=== PATIENT | female | born 1935 | race Caucasian/White ===

== ENCOUNTER 2017-04-28 16:07 | Inpatient (IN) | payer OTHER, MEDICARE ==
[~2017-04-28] VITALS: Ht 154.9 cm; Wt 68.0 kg
[~2017-04-28 16:07] MED LIST: ASPIRIN EC325 MG PO; ATENOLOL25 MG PO; BISAC-EVAC10 M1 PR; COUMADIN7.5 M1 PO; DILTIAZEM HYDR240 M1 PO; DOCUSATE SODIU100 M3 PO; FISH OIL 1,2001 EACH PO; FOLIC ACID0.4 MG PO; HYDROCODON-ACE1 EAC2 PO; HYDRODIURIL 112.5 M1 PO; LISINOPRIL20 MG PO; MIRALAX119 GM PO; POTASSIUM CHLO10 ME1 PO; SELENIUM200 MC1 PO; Tylenol PO; VICODIN5-300 PO; VITAMIN D1000 IU PO; VITAMIN D31000 UNI1 PO
--- NOTE | 2017-04-28 16:15 | ED UPPER/LOWER EXTREMITY COMPL ---
See Addendum History of Present Illness General Chief Complaint: Hip Injury Stated Complaint: BIBA L HIP PAIN Source: patient, old records Exam Limitations: no limitations Vital Signs & Intake/Output Vital Signs & Intake/Output Vital Signs Date Time Temp Pulse Resp B/P B/P Pulse O2 O2 Flow FiO2 Mean Ox Delivery Rate 04/29 1202 78 140/84 04/29 1051 Room Air 04/29 0620 98.3 80 18 138/80 91 Room Air 04/28 2345 98.0 77 18 118/82 92 Room Air 04/28 2154 98.3 87 18 138/58 94 Room Air 04/28 2000 98.1 84 18 111/66 95 Room Air 04/28 1836 67 19 180/100 99 Room Air 04/28 1630 97.2 66 22 172/100 98 Room Air ED Intake and Output 04/29 0000 04/28 1200 Intake Total 100 Output Total Balance 100 Intake, IV 100 Intake, Oral 0 Patient 150 lb Weight Weight Reported by Patient Measurement Method Allergies Coded Allergies: NO KNOWN ALLERGIES (05/15/11) Triage Note: PER PT STOOD UP QUICK AND TURNED FEET GOT TANGLED, FELL ONTO L BUTT, UPON EMS ARRIVAL L LEG SHORTENED NO LOC NO BLOOD THINNERS Triage Nurses Notes Reviewed? yes Onset: Just prior to arrival Duration: day(s): (1) Timing: remote history Severity: moderate Severity Numbers: 8 Pain/Injury Location: Left: Hip. Method of Injury: fall Modifying Factors: Improves With: immobilization. Worsens With: movement. Associated Symptoms: swelling HPI: Patient is a 81-year-old female with history of hypertension presenting to the emergency Department chief complaint of left hip pain, sinus areas prior to arrival after fall. Patient reports that she got up quickly and her left foot got caught on the ground and she twisted her left ankle and went down and landed on her left hip. Denies head striker LOC. No neck pain or back pain. She was unable to get up but reports that her friend was over an irregular call for help. Patient denies abdominal pain chest pain palpitations or shortness of breath. Denies any presyncopal symptoms prior to the fall. Patient reports that her she simply got caught on the floor. Denies being on blood thinners. Denies taking anything for pain prior to arrival. History of right hip fracture 2 years ago that was repaired, reports this feels similar. (Nathalie Mock) Reconcile Medications Atenolol 25 MG TABLET 1 TAB PO DAILY BP (Reported) Cholecalciferol (Vitamin D3) (Vitamin D3) 1,000 UNIT CAPSULE 3 CAP PO DAILY SUPPLEMENT (Reported) DILTIAZEM HCL (Diltiazem 24HR Cd) 240 MG CAP.ER.24H 1 CAP PO DAILY HEART ( Reported) Docusate Sodium 100 MG CAPSULE 100 MG PO BID PRN constipation Folic Acid (Unknown Strength) TAB (Unknown Dose) PO DAILY SUPPLEMENT ( Reported) Hydrochlorothiazide (Hydrodiuril 12.5 MG Tab) 12.5 MG CAPSULE 1 CAP PO DAILY BP (Reported) Lisinopril 20 MG TABLET 1 TAB PO DAILY BP (Reported) Potassium Chloride 10 MEQ TABLET.ER 1 TAB PO DAILY SUPPLEMENT (Reported) Selenomethionine (Selenium) 200 MCG TABLET 1 TAB PO DAILY SUPPLEMENT ( Reported) (Malick LANCASTER,Jeanie) Past History Travel History Traveled to [place] past 21 day No Medical History Any Pertinent Medical History? see below for history Neurological: incidental finding of a brain tumor EENT: NONE Cardiovascular: hypertension Respiratory: NONE Gastrointestinal: NONE Hepatic: NONE Renal: NONE Musculoskeletal: NONE Psychiatric: NONE Endocrine: NONE Blood Disorders: NONE Cancer(s): NONE History of MRSA: No History of VRE: No History of CDIFF: No Pneumonia Vaccine: 03/24/09 Surgical History Surgical History: N Psychosocial History Who do you live with Spouse What is your primary language [place] Family History Hx Contributory? No (Nathalie Mock) Review of Systems Review of Systems Constitutional: Reports: no symptoms. Comments Review of systems: See HPI, All other systems negative. Constitutional, no chills fever or weight loss HEENT: No visual changes no sore throat no congestion Cardiovascular: No chest pain ,palpitation , orthopnea Skin, no jaundice no rashes Respiratory: No dyspnea cough sputum or hemoptysis GI: No nausea no vomiting : No dysuria No hematuria Muscle skeletal: no back pain, no neck pain, Neurologic: No numbness no confusion NO HEADACHES Psych: No stress anxiety or depression,. Heme/endocrine: No bruising no bleeding no polyuria or polydipsia Immunology: No splenectomy or history of AIDS (Nathalie Mock) Physical Exam Physical Exam General Appearance: well developed/nourished, no apparent distress, alert, awake , comfortable Comments: Well-developed well-nourished person in no acute distress HEENT: Atraumatic. Extraocular motion intact, no nystagmus. Pupils equally round and reactive to light and accommodation. Nose is atraumatic. External auditory canal and Tympanic membranes clear. Pharynx normal. No swelling or edema. Neck: Normal infection, no C-spine tenderness. Full range of motion. Cardiovascular: Regular rate and rhythms no murmurs rubs or gallops, normal JVP Respiratory: No respiratory distress.breath sounds clear to auscultation bilaterally Abdomen: Soft, nontender nondistended, no appreciable organomegaly. Normal bowel sounds. No ascites, no rebound or guarding. Extremity: Left lower extremity is shortened, internally rotated, pain to palpation over the left proximal femur/left hip area. Unable to move left lower extremities secondary to pain. Able to move the left toes without difficulties or pain. Pedal pulses are 2+ bilaterally. For range of motion of upper extremities bilaterally without without difficulty or pain. Full range of motion of right lower extremity without difficulty or pain. Edema noted over the left proximal femur area. Tender to palpation over the left lateral ankle. No obvious edema. Pedal pulses are 2+ bilaterally. Neuro: Alert oriented x3, motor sensory normal, cranial nerves II through XII grossly intact. Cerebellar testing is unremarkable. Skin: No appreciable rash on exposed skin, skin is warm and dry. Psych: Mood and affect is normal, memory and judgment is normal. (Adrianna MICHAEL,Nathalie) Progress Differential Diagnosis: contusion, dislocation, fracture, sprain, tendon injury Plan of Care: Orders Procedure Date/time Status Nothing by Mouth 04/29 B Active Change service to 04/29 07 Active CBC WITHOUT DIFFERENTIAL 04/29 599 Complete BASIC ELECTROLYTES PLUS BUN&CR 04/29 599 Complete Heart Healthy Diet 04/28 D Complete Vital Signs 04/28 2317 Active Teach/Educate 04/28 2317 Active Pain Treatment and Response 04/28 2317 Active Nutritional Intake, Monitor 04/28 2317 Active Isolation 04/28 2317 Active Intake & Output 04/28 2317 Active Patient Care Conference 04/28 2317 Active Activity/Ambulation 04/28 2317 Active Pathway - chart 04/28 2155 Active House Staff 04/28 2155 Active Patient Data 04/28 2155 Active Code Status 04/28 2155 Active Patient Data 04/28 2031 Active Intake & Output 04/28 2022 Active ED Holding Orders 04/28 1935 Active Admit to inpatient 04/28 1935 Active Vital Signs 04/28 1935 Active Code Status 04/28 1935 Complete Add-on Test (ER Only) 04/28 1639 Active Jennings, Insertion/Removal/Asses 04/28 1630 Active CULTURE,URINE 04/28 1630 Active URINALYSIS 04/28 1630 Complete TROPONIN LEVEL 04/28 1614 Complete PARTIAL THROMBOPLASTIN TIME 04/28 1614 Complete PROTHROMBIN TIME 04/28 1614 Complete COMPREHENSIVE METABOLIC PANEL 04/28 161 Complete CBC WITHOUT DIFFERENTIAL 04/28 161 Complete EKG 04/28 1614 Active TYPE & SCREEN (NOT X-MATCH) 04/28 1614 Complete VTE Mechanical Prophylaxis 04/28 UNK Active Vital Signs 04/28 UNK Complete Current Medications Sig/Sita Start time Last Medication Dose Stop Time Status Admin Atenolol 25 MG DAILY 04/29 1000 AC 04/29 (Tenormin) 1202 Diltiazem HCl 240 MG DAILY 04/29 1000 AC 04/29 (Cardizem CD) 1202 Morphine Sulfate 2 MG Q4P PRN 04/29 0015 AC 04/29 (Morphine) 1201 Acetaminophen 650 MG Q6P PRN 04/28 2200 AC (Tylenol) Heparin Sodium 5,000 UNIT Q8 04/28 2200 AC 04/29 (Porcine) 0620 Hydrocodone Bitart/ 1 TAB Q6P PRN 04/28 2200 AC 04/28 Acetaminophen 2216 (Vicodin) Senna/Docusate Sodium 1 TAB AT BEDTIME 04/28 2199 AC 04/29 (Senokot S) 0000 Lisinopril 20 MG ONCE ONE 04/28 1929 CAN (Prinivil) 04/28 1930 Laboratory Tests 04/29/17 0800: Anion Gap 10, Estimated GFR > 60, BUN/Creatinine Ratio 33.3 H, CBC w Diff NO MAN DIFF REQ, RBC 4.38, MCV 85.5, MCH 28.4, MCHC 33.2, RDW 13.2, MPV 9.2, Gran % 78.0 H, Lymphocytes % 11.9 L, Monocytes % 8.9, Eosinophils % 1.0, Basophils % 0.2, Absolute Granulocytes 10.7 H, Absolute Lymphocytes 1.6, Absolute Monocytes 1.2 H, Absolute Eosinophils 0.1, Absolute Basophils 0 04/28/17 1645: PT 11.7, INR 1.12, APTT 33, CBC w Diff NO MAN DIFF REQ, RBC 5.04, MCV 85.9, MCH 28.6, MCHC 33.3, RDW 13.5, MPV 8.5, Gran % 76.8 H, Lymphocytes % 14.6 L, Monocytes % 7.1, Eosinophils % 1.2, Basophils % 0.3, Absolute Granulocytes 8.5 H, Absolute Lymphocytes 1.6, Absolute Monocytes 0.8 H, Absolute Eosinophils 0.1 , Absolute Basophils 0 04/28/17 1640: Urine Color YEL, Urine Clarity CLEAR, Urine pH 6.0, Ur Specific [place] 1.025, Urine Protein NEG, Urine Ketones NEG, Urine Nitrite NEG, Urine Bilirubin NEG, Urine Urobilinogen 0.2, Ur Leukocyte Esterase NEG, Ur Microscopic EXAM NOT REQUIRED, Urine Hemoglobin NEG, Urine Glucose NEG 04/28/17 1615: Anion Gap 15, Estimated GFR > 60, BUN/Creatinine Ratio 22.5, Glucose 111 H, Calcium 9.7, Total Bilirubin 0.2, AST 17, ALT 24, Alkaline Phosphatase 113, Troponin I < 0.01, Total Protein 6.7, Albumin 3.8, Globulin 2.9, Albumin/ Globulin Ratio 1.3 Microbiology 04/28 1640 URINE ROUT: Urine Culture - RES Merritt Keyes MD, reporting that the patient will likely go to surgery tomorrow if medically cleared. Nothing by mouth after midnight. Patient's pain has been better controlled with IV Tylenol and IV morphine. She reports that is long she doesn't move she is not in too much pain. Patient's leg was splinted for the left ankle fracture. Remote history of ankle fracture 40 years ago, same side. Patient reports that she did take all of her daily medications prior to coming in this afternoon. Patient given a second dose of her lisinopril secondary to elevated blood pressure. PE blood pressure is 111/68. This is prior to lisinopril. Diagnostic Imaging: Viewed by Me: Radiology Read. Discussed w/RAD: Radiology Read. Radiology Impression: PATIENT: SYDNEY DAWKINS PRESENT AGE: 81 PATIENT ACCOUNT NO: [id number] : 37 LOCATION: [facility] ORDERING PHYSICIAN: Nathalie MICHAEL SERVICE DATE: 04/28/17 EXAM TYPE: RAD - XRY-CHEST XRAY, SINGLE VIEW; XRY-HIP 2-3 VIEWS, LEFT EXAMINATION:\H\ \N\AP view of the chest and 2 views of the left hip CLINICAL INFORMATION: Left hip pain. COMPARISON: Pelvic radiographs 07/17/2015 FINDINGS: Left hip: There is a comminuted intertrochanteric fracture of the proximal left femur with varus angulation of the major distal fracture fragment. Lesser trochanter avulsion fracture fragment. The femoral acetabular joint is maintained. No additional fractures are identified. Stable calcification within the left hemipelvis, again most likely a fibroid. Chest: Symmetric lung inflation. Linear atelectasis at the left lung base. No focal consolidation, pleural effusion, or pneumothorax. There is an old healed fracture of the proximal right humerus. There are a few old healed left-sided rib fractures. No acute fractures are identified. IMPRESSION: - There is an acute comminuted intertrochanteric fracture of the proximal left femur. - No acute findings within the chest. Chronic deformity of the proximal right humerus. DICTATED BY: Bj Garcia MD DATE/TIME DICTATED: 04/28/171723 YARD LABOR SUPERVISOR:ALEXANDER DATE/TIME TRANSCRIBED:04/28/171723 CONFIDENTIAL, DO NOT COPY WITHOUT APPROPRIATE AUTHORIZATION. <Electronically signed in Other Vendor System> SIGNED BY: Bj Garcia MD 04/28/17 1731 (Adrianna MICHAEL,Nathalie) Departure Departure Time of Disposition: 1923 Disposition: STILL A PATIENT Condition: Stable Clinical Impression Primary Impression: Closed left hip fracture Qualifiers: Encounter type: initial encounter Qualified Code: S72.002A - Fracture of unspecified part of neck of left femur, initial encounter for closed fracture Secondary Impressions: Closed fracture of left distal fibula Qualifiers: Encounter type: initial encounter Fracture morphology: unspecified fracture morphology Qualified Code: S82.832A - Other fracture of upper and lower end of left fibula, initial encounter for closed fracture Hypertension Qualifiers: Hypertension type: essential hypertension Qualified Code: I10 - Essential (primary) hypertension Referrals: Jose Brewster DO (PCP/Family) Departure Forms: Customer Survey General Discharge Information Admission Note Spoke With: Sebastián Elias MD Documentation of Exam: Documentation of any treatments & extenuating circumstances including Concerns Regarding Discharge (functional status, medication knowledge or non-compliance, living conditions, etc.) that warrant an admission rather than observation: Patient requiring IV pain management for left hip fracture, surgical correction of left hip fracture, physical therapy evaluation, rehabilitation placement for physical therapy, discharge at this time is medically harmful. Patient usually ambulatory without device at baseline. eval and tx of left ankle. (Nathalie Mock) PA/STRETCH MACHINE OPERATOR Co-Sign Statement Statement: ED Attending supervision documentation- [X] I saw and evaluated the patient. I have also reviewed all the pertinent lab results and diagnostic results. I agree with the findings and the plan of care as documented in the PA's/STRETCH MACHINE OPERATOR's documentation. [X] I have reviewed the ED Record and agree with the PA's/STRETCH MACHINE OPERATOR's documentation. [] Additions or exceptions (if any) to the PAs/STRETCH MACHINE OPERATOR's note and plan are summarized below: [] (Malick LANCASTER,Jeanie) Procedures Splinting Location: left ankle Manual Alignment Performed: No Hand-Made Type: orthoglass Splint: posterior walking Splint Applied By: splint applied by me Pre-Proc Neuro Vasc Exam: normal Post-Proc Neuro Vasc Exam: normal Progress: tolerated well (Nathalie Mock) Critical Care Note Critical Care Note Critical Care Time: 30-74 min (Nathalie Mock)
[2017-04-28 17:00] LABS: ABSOLUTE BASOPHIL COUNT 0 /CUMM (0.0-0.2); ABSOLUTE EOSINOPHIL COUNT 0.1 /CUMM (0.0-0.7); ABSOLUTE GRANULOCYTE CT 8.5 /CUMM (1.4-6.5); ABSOLUTE LYMPH COUNT 1.6 /CUMM (1.2-3.4); ABSOLUTE MONOCYTE COUNT 0.8 /CUMM (0.10-0.60); BASOPHIL % 0.3 % (0.0-2.0); EOSINOPHIL % 1.2 % (0-5); GRANULOCYTE % 76.8 % (42.2-75.2); HEMATOCRIT 43.3 % (37-47); MEAN CORPUSCULAR HGB 28.6 PG (27.0-31.0); MEAN CORPUSCULAR HGB CONC 33.3 G/DL (33.0-37.0); MEAN CORPUSCULAR VOLUME 85.9 FL (81.0-99.0); MEAN PLATELET VOLUME 8.5 FL (7.4-10.4); PLATELET COUNT 356 /CUMM (130-400); RBC DISTRIBUTION WIDTH 13.5 % (11.5-14.5); RED BLOOD CELL CT 5.04 /CUMM (4.20-5.40)
[2017-04-28 17:10] LABS: PT 11.7 SEC (9.4-12.5); PTT 33 SEC (25-37)
--- NOTE | 2017-04-28 17:31 | RADIOLOGY REPORT ---
EXAMINATION:\H\ \N\AP view of the chest and 2 views of the left hip CLINICAL INFORMATION: Left hip pain. COMPARISON: Pelvic radiographs 07/17/2015 FINDINGS: Left hip: There is a comminuted intertrochanteric fracture of the proximal left femur with varus angulation of the major distal fracture fragment. Lesser trochanter avulsion fracture fragment. The femoral acetabular joint is maintained. No additional fractures are identified. Stable calcification within the left hemipelvis, again most likely a fibroid. Chest: Symmetric lung inflation. Linear atelectasis at the left lung base. No focal consolidation, pleural effusion, or pneumothorax. There is an old healed fracture of the proximal right humerus. There are a few old healed left-sided rib fractures. No acute fractures are identified. IMPRESSION: - There is an acute comminuted intertrochanteric fracture of the proximal left femur. - No acute findings within the chest. Chronic deformity of the proximal right humerus.
--- NOTE | 2017-04-28 18:20 | RADIOLOGY REPORT ---
EXAMINATION: AP view of the pelvis and 2 views of the left ankle CLINICAL INFORMATION: Fall. COMPARISON: Left hip radiographs performed earlier the same day. FINDINGS: Pelvis: Stable appearing comminuted intertrochanteric fracture of the proximal left femur with varus angulation of the major distal fracture fragment and a lesser trochanter avulsion fracture fragment. There are chronic appearing fractures of the superior and inferior pubic rami associated with callus formation. There is a screw and intramedullary demarco within the proximal right femur. Femoral acetabular joints are well aligned. Left ankle: There is a transverse fracture through the distal fibula with adjacent soft tissue swelling. Ankle mortise is intact. No additional fractures are identified. Hypertrophic spur at the Achilles insertion of the calcaneus. IMPRESSION: - Stable appearing acute comminuted intertrochanteric fracture of the proximal left femur. No additional acute pelvic fractures. - There is an acute transverse fracture through the distal left fibula with adjacent soft tissue swelling. No additional acute ankle fractures. - Chronic appearing fractures of the superior and inferior pubic rami bilaterally exhibiting callus formation
--- NOTE | 2017-04-28 20:18 | Cons- Orthopedic ---
Blanche Connelly 04/28/17 2016: General Information and HPI Consulting Request Date of Consult: 04/28/17 Requested By: ED Reason for Consult: left hip fx, left fibula fx History of Present Illness: 81yoF presents to ed sp fall at home. She denies cp/sob/palpitations/dizziness at time of fall, and thinks she "rolled" her ankle causing her to fall and land on her left hip. She denies head injury or loc. She has pain in her left hip and lower leg with movement, though comfortable at this time at rest. Denies parasthesias, denies any other current symptoms other than pain with movement. She does have a history of right hip fx sp orif [address] Gates, whom she requests again if available. Allergies/Medications Allergies: Coded Allergies: NO KNOWN ALLERGIES (05/15/11) Home Med List: Atenolol 25 MG TABLET 1 TAB PO DAILY BP (Reported) Cholecalciferol (Vitamin D3) (Vitamin D3) 1,000 UNIT CAPSULE 3 CAP PO DAILY SUPPLEMENT (Reported) DILTIAZEM HCL (Diltiazem 24HR Cd) 240 MG CAP.ER.24H 1 CAP PO DAILY HEART ( Reported) Docusate Sodium 100 MG CAPSULE 100 MG PO BID PRN constipation Folic Acid (Unknown Strength) TAB (Unknown Dose) PO DAILY SUPPLEMENT ( Reported) Hydrochlorothiazide (Hydrodiuril 12.5 MG Tab) 12.5 MG CAPSULE 1 CAP PO DAILY BP (Reported) Lisinopril 20 MG TABLET 1 TAB PO DAILY BP (Reported) Potassium Chloride 10 MEQ TABLET.ER 1 TAB PO DAILY SUPPLEMENT (Reported) Selenomethionine (Selenium) 200 MCG TABLET 1 TAB PO DAILY SUPPLEMENT ( Reported) Past History Medical History Neurological: TIA (4 years ago) Cardiovascular: hypertension Musculoskeletal: falls, sp right hip orif, hx right shoulder dislocation, sp r wrist orif Surgical History Pertinent Surgical History: tubal ligation, right hip orif, right wrist orif Psychosocial History Where Do You Live? Home Who Do You Live With? self Services at Home: None Functional Ability Ambulation: cane Exam & Diagnostic Data Vital Signs and I&O Vital Signs Date Time Temp Pulse Resp B/P B/P Pulse O2 O2 Flow FiO2 Mean Ox Delivery Rate 04/28 1836 67 19 180/100 99 Room Air 04/28 1630 97.2 66 22 172/100 98 Room Air Physical Exam: gen- nad card-s1s2 rrr pulm- ctab abd- obese soft nt ext- lle shortened and ext rotated, palp dp, gross sensate and motor intact in toes, toes warm, distal leg in spint, hip ttp laterally. rle calf soft nt, palp dp, no lesions Last 24 Hours of Labs: Laboratory Tests 04/28 04/28 1645 1640 Coagulation PT (9.4 - 12.5 SEC) 11.7 INR (0.90 - 1.19) 1.12 APTT (25 - 37 SEC) 33 Hematology CBC w Diff NO MAN DIFF REQ WBC (4.8 - 10.8 /CUMM) 11.0 H RBC (4.20 - 5.40 /CUMM) 5.04 Hgb (12.0 - 16.0 G/DL) 14.4 Hct (37 - 47 %) 43.3 MCV (81.0 - 99.0 FL) 85.9 MCH (27.0 - 31.0 PG) 28.6 MCHC (33.0 - 37.0 G/DL) 33.3 RDW (11.5 - 14.5 %) 13.5 Plt Count (130 - 400 /CUMM) 356 MPV (7.4 - 10.4 FL) 8.5 Gran % (42.2 - 75.2 %) 76.8 H Lymphocytes % (20.5 - 51.1 %) 14.6 L Monocytes % (1.7 - 9.3 %) 7.1 Eosinophils % (0 - 5 %) 1.2 Basophils % (0.0 - 2.0 %) 0.3 Absolute Granulocytes (1.4 - 6.5 /CUMM) 8.5 H Absolute Lymphocytes (1.2 - 3.4 /CUMM) 1.6 Absolute Monocytes (0.10 - 0.60 /CUMM) 0.8 H Absolute Eosinophils (0.0 - 0.7 /CUMM) 0.1 Absolute Basophils (0.0 - 0.2 /CUMM) 0 Urines Urine Color (YEL,AMB,STR) YEL Urine Clarity (CLEAR) CLEAR Urine pH (5.0 - 8.0) 6.0 Ur Specific [place] (1.001 - 1.035) 1.025 Urine Protein (NEG,<30 MG/DL) NEG Urine Ketones (NEG) NEG Urine Nitrite (NEG) NEG Urine Bilirubin (NEG) NEG Urine Urobilinogen (0.1 - 1.0 EU/dl) 0.2 Ur Leukocyte Esterase (NEG) NEG Ur Microscopic EXAM NOT REQUIRED Urine Hemoglobin (NEG) NEG Urine Glucose (N MG/DL) NEG 04/28 161 Chemistry Sodium (137 - 145 mmol/L) 144 Potassium (3.5 - 5.1 mmol/L) 3.7 Chloride (98 - 107 mmol/L) 102 Carbon Dioxide (22 - 30 mmol/L) 28 Anion Gap (5 - 16) 15 BUN (7 - 17 mg/dL) 18 H Creatinine (0.5 - 1.0 mg/dL) 0.8 Estimated GFR (>60 ml/min) > 60 BUN/Creatinine Ratio (7 - 25 %) 22.5 Glucose (65 - 99 mg/dL) 111 H Calcium (8.4 - 10.2 mg/dL) 9.7 Total Bilirubin (0.2 - 1.3 mg/dL) 0.2 AST (14 - 36 U/L) 17 ALT (9 - 52 U/L) 24 Alkaline Phosphatase (<127 U/L) 113 Troponin I (< 0.11 ng/ml) < 0.01 Total Protein (6.3 - 8.2 g/dL) 6.7 Albumin (3.5 - 5.0 g/dL) 3.8 Globulin (1.9 - 4.2 gm/dL) 2.9 Albumin/Globulin Ratio (1.1 - 2.2 %) 1.3 Imaging Results: SERVICE DATE: 04/28/17 EXAM TYPE: RAD - XRY-CHEST XRAY, SINGLE VIEW; XRY-HIP 2-3 VIEWS, LEFT EXAMINATION:\\H\\ \\N\\AP view of the chest and 2 views of the left hip CLINICAL INFORMATION: Left hip pain. COMPARISON: Pelvic radiographs 07/17/2015 FINDINGS: Left hip: There is a comminuted intertrochanteric fracture of the proximal left femur with varus angulation of the major distal fracture fragment. Lesser trochanter avulsion fracture fragment. The femoral acetabular joint is maintained. No additional fractures are identified. Stable calcification within the left hemipelvis, again most likely a fibroid. Chest: Symmetric lung inflation. Linear atelectasis at the left lung base. No focal consolidation, pleural effusion, or pneumothorax. There is an old healed fracture of the proximal right humerus. There are a few old healed left-sided rib fractures. No acute fractures are identified. IMPRESSION: - There is an acute comminuted intertrochanteric fracture of the proximal left femur. - No acute findings within the chest. Chronic deformity of the proximal right humerus. SERVICE DATE: 04/28/17 EXAM TYPE: RAD - XRY-AP PELVIS; XRY-TWO VIEW LEFT ANKLE EXAMINATION: AP view of the pelvis and 2 views of the left ankle CLINICAL INFORMATION: Fall. COMPARISON: Left hip radiographs performed earlier the same day. FINDINGS: Pelvis: Stable appearing comminuted intertrochanteric fracture of the proximal left femur with varus angulation of the major distal fracture fragment and a lesser trochanter avulsion fracture fragment. There are chronic appearing fractures of the superior and inferior pubic rami associated with callus formation. There is a screw and intramedullary demarco within the proximal right femur. Femoral acetabular joints are well aligned. Left ankle: There is a transverse fracture through the distal fibula with adjacent soft tissue swelling. Ankle mortise is intact. No additional fractures are identified. Hypertrophic spur at the Achilles insertion of the calcaneus. IMPRESSION: - Stable appearing acute comminuted intertrochanteric fracture of the proximal left femur. No additional acute pelvic fractures. - There is an acute transverse fracture through the distal left fibula with adjacent soft tissue swelling. No additional acute ankle fractures. - Chronic appearing fractures of the superior and inferior pubic rami bilaterally exhibiting callus formation Assessment/Plan Assessment/Plan A- 81yof with left comminuted intertrochanteric fracture and transverse fracture of distal left fibula, with chronic pubic rami fractures, PMHx HTN and tia. P- -will require operative intervention once medically optimized. -npopmn -prn pain meds -will dw Dr. Keyes Consult Acknowledgment - Thank you for your consult request. Paulo Gates MD 04/29/17 2380: Assessment/Plan Consult Acknowledgment - Thank you for your consult request. Attending Review Statement Attending Statement Attending MD Statement: examined this patient, discuss w/resident/PA/CLIENT PARTNER, agreed w/resident/PA/CLIENT PARTNER
--- NOTE | 2017-04-28 20:52 | History & Physical ---
See Addendum Richard LANCASTER,[facility] 04/28/172050: General Information and HPI MD Statement: I have seen and personally examined JUANCHOSYDNEY and documented this H&P. The patient is a 81 year old F who presented with a patient stated chief complaint of [twisted left ankle and fall]. Source of Information: patient Exam Limitations: no limitations History of Present Illness: 81-year-old female with a past medical history of hypertension and incidental brain tumor, right hip fracture 2 years ago, and left ankle fracture 4 years ago presenting for left hip pain status post fall. The patient states that she got up too quickly from her chair and twisted her left ankle and then fell onto her left hip. The patient states that she had left hip and left ankle pain. She did not hit her head. She did not lose any consciousness. The patient currently does not have any pain at rest. She lives at home and is independent. She does not use any walker at baseline however she will use a cane if she walks outside for more support. The patient denies any headaches, dizziness, palpitations, nausea or vomiting, abdominal pain, changes in vision, seizures, incontinence, or tongue biting. Allergies/Medications Allergies: Coded Allergies: NO KNOWN ALLERGIES (05/15/11) Home Med list Atenolol 25 MG TABLET 1 TAB PO DAILY BP (Reported) Cholecalciferol (Vitamin D3) (Vitamin D3) 1,000 UNIT CAPSULE 3 CAP PO DAILY SUPPLEMENT (Reported) DILTIAZEM HCL (Diltiazem 24HR Cd) 240 MG CAP.ER.24H 1 CAP PO DAILY HEART ( Reported) Docusate Sodium 100 MG CAPSULE 100 MG PO BID PRN constipation Folic Acid (Unknown Strength) TAB (Unknown Dose) PO DAILY SUPPLEMENT ( Reported) Hydrochlorothiazide (Hydrodiuril 12.5 MG Tab) 12.5 MG CAPSULE 1 CAP PO DAILY BP (Reported) Lisinopril 20 MG TABLET 1 TAB PO DAILY BP (Reported) Potassium Chloride 10 MEQ TABLET.ER 1 TAB PO DAILY SUPPLEMENT (Reported) Selenomethionine (Selenium) 200 MCG TABLET 1 TAB PO DAILY SUPPLEMENT ( Reported) Past History Travel History Traveled to [place] past 21 day No Medical History Cardiovascular: hypertension Musculoskeletal: sp right hip orif History of MRSA: No History of VRE: No History of CDIFF: No Surgical History Surgical History: right hip orif Past Family/Social History Functional Ability Ambulation: cane Review of Systems Review of Systems Constitutional: Reports: no symptoms. Cardiovascular: Reports: no symptoms. Respiratory: Reports: no symptoms. GI: Reports: no symptoms. Genitourinary: Reports: no symptoms. Musculoskeletal: Reports: see HPI. Exam & Diagnostic Data Last 24 Hrs of Vital Signs/I&O Vital Signs Date Time Temp Pulse Resp B/P B/P Pulse O2 O2 Flow FiO2 Mean Ox Delivery Rate 04/28 2345 98.0 77 18 118/82 92 Room Air 04/28 2154 98.3 87 18 138/58 94 Room Air 04/28 2000 98.1 84 18 111/66 95 Room Air 04/28 1836 67 19 180/100 99 Room Air 04/28 1630 97.2 66 22 172/100 98 Room Air Intake & Output 04/29 0800 04/29 0000 04/28 1600 Intake Total 100 Output Total Balance 100 Intake, IV 100 Intake, Oral 0 Patient 150 lb Weight Weight Reported by Patient Measurement Method Physical Exam General Appearance Alert, Oriented X3 Cardiovascular Regular Rate, Normal S1, Normal S2 Lungs Clear to Auscultation, Normal Air Movement Abdomen Normal Bowel Sounds, Soft, No Tenderness Extremities left hip tender to palpation, left ankle/fibula wrapped Vascular 2+ radial and pedal pulses Last 24 Hrs of Labs/Brijesh: Laboratory Tests 04/28/17 1645: PT 11.7, INR 1.12, APTT 33, CBC w Diff NO MAN DIFF REQ, RBC 5.04, MCV 85.9, MCH 28.6, MCHC 33.3, RDW 13.5, MPV 8.5, Gran % 76.8 H, Lymphocytes % 14.6 L, Monocytes % 7.1, Eosinophils % 1.2, Basophils % 0.3, Absolute Granulocytes 8.5 H, Absolute Lymphocytes 1.6, Absolute Monocytes 0.8 H, Absolute Eosinophils 0.1 , Absolute Basophils 0 04/28/17 1640: Urine Color YEL, Urine Clarity CLEAR, Urine pH 6.0, Ur Specific [place] 1.025, Urine Protein NEG, Urine Ketones NEG, Urine Nitrite NEG, Urine Bilirubin NEG, Urine Urobilinogen 0.2, Ur Leukocyte Esterase NEG, Ur Microscopic EXAM NOT REQUIRED, Urine Hemoglobin NEG, Urine Glucose NEG 04/28/17 1615: Anion Gap 15, Estimated GFR > 60, BUN/Creatinine Ratio 22.5, Glucose 111 H, Calcium 9.7, Total Bilirubin 0.2, AST 17, ALT 24, Alkaline Phosphatase 113, Troponin I < 0.01, Total Protein 6.7, Albumin 3.8, Globulin 2.9, Albumin/ Globulin Ratio 1.3 Microbiology 04/28 1640 URINE ROUT: Urine Culture - RECD Assessment/Plan Assessment: 81-year-old female with a past medical history of hypertension and incidental brain tumor, right hip fracture 2 years ago, and left ankle fracture 4 years ago presenting for left hip pain status post fall and found to have a left fibular fracture. 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 Fibula fracture Core Measures/Misc (12/08) Acute Coronary Syndrome ACS Diagnosis: No Congestive Heart Failure Congestive Heart Failure Diagnosis No Cerebrovascular Accident CVA/TIA Diagnosis: No VTE (View Protocol) VTE Risk Factors Acute Medical Illness No Mechanical VTE Prophylaxis d/t Other No VTE Pharm Prophylaxis d/t NA PharmProphylax ordered Sepsis (View protocol) Sepsis Present: No [facility]11: Resident Review Statement Resident Statement: examined this patient, discussed with management internship, agreed with management internship Other Findings: Ms. Brandon is 9T9 [age] female with past medical history significant for hypertension, right hip fracture. Patient presented with chief complaint of left hip pain status post fall on left side. She reported diet which was trying to get up quickly from chair she twisted left ankle and fell on her left hip, felt pain immediately. Denied any weakness or numbness. Patient had multiple fractures before all after major trauma. Was started recently on IV to donate once a week. Patient denied any headaches, blurry vision, dizziness, syncopal attack, confusion, seizures. She lives by herself and competent ADL and IADL without problems. Problem list -Hypertension -Fall -Leukocytosis mostly reactional Plan -Admit to general medical floor -Vitals every shift -Orth consultation -Cardiac clearance given that history of stress test 2 years ago and hypertension on multiple blood pressure medication hydrochlorothiazide, beta kun, calcium channel kun, ESA inhibitor -Adequate pain control -Follow CBC and BMP in a.m. -please obtain records from ambulance driver paramedic Code full DVT prophylaxis heparin subcutaneous Nothing by mouth for surgical intervention in a.m. Sebastián Elias 04/29/17 1012: Attending MD Review Statement Attending Statement Attending MD Statement: examined this patient, discuss w/resident/PA/OIL DISPENSER, agreed w/resident/PA/OIL DISPENSER, reviewed EMR data (avail), reviewed images, amended to note Attending Assessment/Plan: CC: Fall PMH: Hypertension, multiple fractures, right hip replacement Patient came to ER for what appears to be mechanical fall. Patient was trying to get up from chair twisted her left ankle and fell down on her buttock, no head strike, no loss of consciousness, no prodromal symptoms before fall. No seizure- like activity. At baseline patient is very active, does not get shortness of breath or chest pain on exertion, no history of coronary artery disease or cardiac catheterization, stress test within the last 2 years which was normal. Vitals: Temperature 97.2, pulse 66, RR 22, blood pressure 172/100, saturating 98 % on room air On exam: A O 3, cooperative, no acute distress, neck supple, JVD normal, no lymphadenopathy, mucosa moist, no focal neurological deficit, no dependent edema , no obvious skin rashes or inflammation CVS: S1-S2, RRR. RS: Clear to auscultate bilaterally. Abdomen: Soft, NT, ND, bowel sounds present. Left lower extremity shorter, bony tenderness, no open wounds, left ankle braced Labs: WBC 11.0, hemoglobin 4.4, hematocrit 43.3, platelets 356, neutrophils 76%, sodium 144, potassium 3.7, chloride 102, bicarbonate 28, BUN 18, creatinine 0.8, glucose 111, calcium 9.7, LFT unremarkable, troponin 0.01 1.12, UA unremarkable X-ray pelvis, x-ray ankle, x-ray hip and x-ray chest reviewed - Stable appearing acute comminuted intertrochanteric fracture of the proximal left femur. No additional acute pelvic fractures. - There is an acute transverse fracture through the distal left fibula with adjacent soft tissue swelling. No additional acute ankle fractures. - Chronic appearing fractures of the superior and inferior pubic rami bilaterally exhibiting callus formation Assessment and plan 81-year-old female came to ER after mechanical fall. No prodromal symptoms, no loss of consciousness, no head strike. She is found to have left intertrochanteric femur fracture and distal left fibula acute transverse fracture. Patient will require surgery. At baseline patient has no chest pain or chest tightness or dyspnea on exertion, never had coronary artery disease and stents of RCRI is low, good exercise tolerance. She used to do alize chi until 6 months back. 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 + Left intertrochanteric femur fracture + Left fibula fracture + Preop evaluation - Nothing by mouth - Saline lock IV - Continue her oral antihypertensives - Adequate pain control - Follow surgical recommendations - May require 2-D echo for persistent hypertension on multiple medications, cardiac clearance - Obtain records from patient's ambulance driver paramedic - DVT prophylaxis after surgery
[2017-04-28 23:45] VITALS: BP 118/82
[2017-04-29 06:20] VITALS: BP 138/80
--- NOTE | 2017-04-29 07:39 | PN- Housestaff ---
Harish LANCASTER,Alison 04/29/17 0739: Subjective Follow-up For: hypertension fibula fracture fall Subjective: patient is complaining of pain in her left hip from her fall. she has no other complaints. patient is NPO for surgery as of the morning. Review of Systems Constitutional: Reports: no symptoms. Cardiovascular: Reports: no symptoms. Respiratory: Reports: no symptoms. Musculoskeletal: Reports: joint pain, muscle pain. Hematologic/Endocrine: Reports: bruising. Objective Last 24 Hrs of Vital Signs/I&O Vital Signs Date Time Temp Pulse Resp B/P B/P Pulse O2 O2 Flow FiO2 Mean Ox Delivery Rate 04/29 1600 97.9 64 20 120/54 04/29 1429 99.3 68 20 125/80 91 04/29 1202 78 140/84 04/29 1051 Room Air 04/29 0620 98.3 80 18 138/80 91 Room Air 04/28 2345 98.0 77 18 118/82 92 Room Air Intake & Output 04/29 1600 04/29 0800 04/29 0000 Intake Total 100 Output Total 150 850 Balance -150 -850 100 Intake, IV 100 Intake, Oral 0 Number 0 Bowel Movements Output, Urine 150 850 Patient 150 lb Weight Weight Reported by Patient Measurement Method Physical Exam General Appearance: Alert, Oriented X3, Cooperative, No Acute Distress Skin: No Rashes, No Breakdown, No Significant Lesion Cardiovascular: Regular Rate, Normal S1, Normal S2, No Murmurs Lungs: Clear to Auscultation, Normal Air Movement Abdomen: Normal Bowel Sounds, Soft, No Tenderness Neurological: Normal Speech, Sensation Intact, Reflexes 2+ Extremities: No Clubbing, No Cyanosis, No Edema, Normal Pulses Current Medications: Current Medications Sig/Sita Start time Last Medication Dose Route Stop Time Status Admin Acetaminophen 650 MG Q6P PRN 04/29 1745 AC PO Acetaminophen 1,000 MG .STK-MED ONE 04/29 1352 DC IV 04/29 1353 Acetaminophen 1,000 MG .STK-MED ONE 04/29 1055 DC IV 04/29 1056 Acetaminophen 650 MG Q6P PRN 04/28 2200 DC PO Apixaban 2.5 MG BID 05/01 1000 AC PO Atenolol 25 MG DAILY 04/30 1000 AC PO Atenolol 25 MG DAILY 04/29 1000 DC 04/29 PO 1202 Cefazolin Sodium 2 GM Q8H 04/29 2300 AC N/A 1 UNIT IV 04/30 0729 Dextrose/Sodium 1,000 ML Q20H 04/30 0930 CAN Chloride IV Dextrose/Sodium 1,000 ML Q20H 04/29 1330 DC Chloride IV 04/30 0929 Diltiazem HCl 240 MG DAILY 04/30 1000 AC PO Diltiazem HCl 240 MG DAILY 04/29 1000 DC 02/ PO 1202 Fentanyl Citrate 250 MCG .STK-MED ONE 04/29 1352 DC IM 04/29 1353 Fentanyl Citrate 100 MCG .STK-MED ONE 04/29 1055 DC IM 04/29 1056 Haloperidol 5 MG .STK-MED ONE 04/29 1403 DC IM 04/29 1404 Heparin Sodium 5,000 UNIT Q8 04/29 2200 AC (Porcine) SC Heparin Sodium 0 .STK-MED ONE 04/28 2246 DC (Porcine) .ROUTE Heparin Sodium 5,000 UNIT Q8 04/28 2200 DC 04/29 (Porcine) SC 0620 Hydrocodone Bitart/ 1 TAB Q6P PRN 04/29 1745 AC Acetaminophen PO Hydrocodone Bitart/ 0 .STK-MED ONE 04/28 2219 DC Acetaminophen PO Hydrocodone Bitart/ 1 TAB Q6P PRN 04/28 2200 DC 04/28 Acetaminophen PO 2216 Hydromorphone HCl 2 MG .STK-MED ONE 04/29 1352 DC IM 04/29 1353 Ibuprofen 600 MG Q6P PRN 04/28 2200 DC PO Ketamine HCl 50 MG .STK-MED ONE 04/29 1100 DC IM 04/29 1101 Methocarbamol 500 MG TIDPRN PRN 04/29 2145 AC PO Midazolam HCl 2 MG .STK-MED ONE 04/29 1352 DC IM 04/29 1353 Midazolam HCl 2 MG .STK-MED ONE 04/29 1100 DC IM 04/29 1101 Midazolam HCl 2 MG .STK-MED ONE 04/29 1055 DC IM 04/29 1056 Morphine Sulfate 2 MG Q4P PRN 04/29 1745 AC 04/29 IV 1814 Morphine Sulfate 2 MG Q4P PRN 04/29 0015 DC 04/29 IV 1201 Morphine Sulfate 2 MG ONCE ONE 04/28 2300 DC 04/28 IV 04/28 2301 2256 Morphine Sulfate 0 .STK-MED ONE 04/28 2255 DC .ROUTE Omeprazole 20 MG DAILY AC 05/01 699 DC PO Omeprazole 20 MG DAILY AC 05/01 699 AC PO Ondansetron HCl 4 MG .STK-MED ONE 04/29 1403 DC IM 04/29 1404 Senna/Docusate Sodium 1 TAB AT BEDTIME 04/29 2200 AC PO Senna/Docusate Sodium 1 TAB AT BEDTIME 04/28 2200 DC 04/29 PO 0000 Last 24 Hrs of Lab/Brijesh Results Last 24 Hrs of Labs/Mics: Laboratory Tests 04/29/17 0800: Anion Gap 10, Estimated GFR > 60, BUN/Creatinine Ratio 33.3 H, CBC w Diff NO MAN DIFF REQ, RBC 4.38, MCV 85.5, MCH 28.4, MCHC 33.2, RDW 13.2, MPV 9.2, Gran % 78.0 H, Lymphocytes % 11.9 L, Monocytes % 8.9, Eosinophils % 1.0, Basophils % 0.2, Absolute Granulocytes 10.7 H, Absolute Lymphocytes 1.6, Absolute Monocytes 1.2 H, Absolute Eosinophils 0.1, Absolute Basophils 0 Assessment/Plan Assessment: 81-year-old female with a past medical history of hypertension and incidental brain tumor, right hip fracture 2 years ago, and left ankle fracture 4 years ago presenting for left hip pain status post fall and found to have a left fibular fracture. Plan: #Acute left fibular fracture -Patient to go for surgery today. She is NPO and on D51/2NS 50cc per hour in preparation. -Cardiac consult was called and they have given clearance for this lower risk procedure. -Echo for further periop workup was done before cardio consult was in. It showed EF of >65% with stage I diastolic dysfunction. We will do post surgery EKG. Also dc fluid and start diet post surgery. -prn pain meds (patient prefers Vicodin) -we will follow up with anticoagulation as ortho recommends. -Patient's DEXA is -3.6 but she is not on alendronate. It is recommended she start it on discharge and we will prescribe. - #Hypertension BP Max 180/100 Current BP: 118/82 #BPH #Full code #DVT prophylaxis Problem List: 1. Closed fracture of left distal fibula Pain Ratin Pain Location: left hip Pain Goal: Pain 4 or less Pain Plan: pathway Tomorrow's Labs & Rationales: cbc Joy Wisdom 04/29/17 1250: Attending MD Review Statement Attending Statement Attending MD Statement: examined this patient, discuss w/resident/PA/OPERATOR TECHNICIAN, agreed w/resident/PA/OPERATOR TECHNICIAN, discussed with family, reviewed EMR data (avail), discussed with nursing, discussed with case mgmt, reviewed images, amended to note Attending Assessment/Plan: Assessment and plan 81-year-old female came to ER after mechanical fall. No prodromal symptoms, no loss of consciousness, no head strike. She is found to have left intertrochanteric femur fracture and distal left fibula acute transverse fracture. patient has no chest pain or chest tightness or dyspnea on exertion, never had coronary artery disease and stents of RCRI is low, good exercise tolerance. 1 Left intertrochanteric femur fracture 2 Left fibula fracture 3 Preop evaluation - There is no medical contraindication for surgery. Low RCRI index. Patient is low risk for operative procedure. - Continue her oral antihypertensives - Adequate pain control - Follow orthopedics recommendations - Cardiology appreciated - DVT prophylaxis as per orthopedics.
[2017-04-29 08:51] LABS: ABSOLUTE BASOPHIL COUNT 0 /CUMM (0.0-0.2); ABSOLUTE EOSINOPHIL COUNT 0.1 /CUMM (0.0-0.7); ABSOLUTE LYMPH COUNT 1.6 /CUMM (1.2-3.4); MEAN CORPUSCULAR HGB 28.4 PG (27.0-31.0)
[2017-04-29 09:06] LABS: ABSOLUTE GRANULOCYTE CT 10.7 /CUMM (1.4-6.5); ABSOLUTE MONOCYTE COUNT 1.2 /CUMM (0.10-0.60); BASOPHIL % 0.2 % (0.0-2.0); MEAN CORPUSCULAR HGB CONC 33.2 G/DL (33.0-37.0); MEAN CORPUSCULAR VOLUME 85.5 FL (81.0-99.0); MEAN PLATELET VOLUME 9.2 FL (7.4-10.4); PLATELET COUNT 323 /CUMM (130-400); RBC DISTRIBUTION WIDTH 13.2 % (11.5-14.5); RED BLOOD CELL CT 4.38 /CUMM (4.20-5.40); WHITE BLOOD CELL COUNT 13.7 /CUMM (4.8-10.8)
[2017-04-29 09:12] LABS: HEMATOCRIT 37.5 % (37-47)
--- NOTE | 2017-04-29 10:13 | Admission Certification ---
Admission Certification Certification Statement - As attending physician, I certify that at the time of - admission, based on clinical presentation, severity of - symptoms, need for further diagnostic testing and - therapeutic interventions, and risk of adverse outcomes - without in-hospital treatment, in my clinical assessment, - this patient requires an acute hospital stay for a minimum - of two nights or longer. I have also considered psychsocial - factors such as support system, advanced age, financial - issues, cognitive issues, and failed out-patient treatments, - past re-admission history, safety of patient, and lack of - compliance as applicable. Specific rationale supporting this admission is: Left femur fracture
--- NOTE | 2017-04-29 10:37 | Cons- Cardiology ---
General Information and HPI Consulting Request Date of Consult: 04/29/17 Requested By: Joy Wisdom MD Reason for Consult: Cardiac clearance for hip fracture repair. Source of Information: patient, old records Exam Limitations: no limitations History of Present Illness: The patient is a 81-year-old female with a long history of hypertension. She is not diabetic. She doesn't have any history of heart disease including myocardial infarction, revascularization, etc. She denies any chest pain or shortness of breath on exertion. She has no orthopnea, PND, ankle edema, dizziness, syncope. The patient yesterday "twisted her ankle" and fell on her left side, fracturing her hip and her fibula. She is preoperative for hip fracture repair. She denies dizziness, presyncope or guido syncope preceding this event. The patient states her blood pressure is under good control at home. She is on multiple medications for this. Allergies/Medications Allergies: Coded Allergies: NO KNOWN ALLERGIES (05/15/11) Home Med List: Apixaban (Eliquis) 2.5 MG TABLET 1 TAB PO BID post surgical anticoagulation Atenolol 25 MG TABLET 1 TAB PO DAILY BP (Reported) Cholecalciferol (Vitamin D3) (Vitamin D3) 1,000 UNIT CAPSULE 3 CAP PO DAILY SUPPLEMENT (Reported) DILTIAZEM HCL (Diltiazem 24HR Cd) 240 MG CAP.ER.24H 1 CAP PO DAILY HEART ( Reported) Docusate Sodium 100 MG CAPSULE 100 MG PO BID PRN constipation Folic Acid (Unknown Strength) TAB (Unknown Dose) PO DAILY SUPPLEMENT ( Reported) Hydrochlorothiazide (Hydrodiuril 12.5 MG Tab) 12.5 MG CAPSULE 1 CAP PO DAILY BP (Reported) Hydrocodone/Acetaminophen (Hydrocodon-Acetaminophen 5-325) 5 MG-325 MG TABLET 1 TAB PO Q6P PRN PAIN SCALE 4-6 (MODERATE) Lisinopril 20 MG TABLET 1 TAB PO DAILY BP (Reported) Potassium Chloride 10 MEQ TABLET.ER 1 TAB PO DAILY SUPPLEMENT (Reported) Selenomethionine (Selenium) 200 MCG TABLET 1 TAB PO DAILY SUPPLEMENT ( Reported) Tramadol HCl 50 MG TABLET 1 TAB PO Q6P PRN pain Current Medications: Current Medications Sig/Sita Start time Last Medication Dose Route Stop Time Status Admin Acetaminophen 650 MG Q6P PRN 04/28 2199 AC PO Acetaminophen 0 .STK-MED ONE 02/05 1947 DC IV Acetaminophen 1,000 MG ONCE ONE 04/28 1615 DC 04/28 N/A 1 UNIT IV 04/28 1629 1953 Atenolol 25 MG DAILY 04/29 1000 AC 04/29 PO 1202 Diltiazem HCl 240 MG DAILY 04/29 1000 AC 04/29 PO 1202 Heparin Sodium 0 .STK-MED ONE 04/28 2246 DC (Porcine) .ROUTE Heparin Sodium 5,000 UNIT Q8 04/28 2200 AC 04/29 (Porcine) SC 0620 Hydrocodone Bitart/ 0 .STK-MED ONE 04/28 2219 DC Acetaminophen PO Hydrocodone Bitart/ 1 TAB Q6P PRN 04/28 2200 AC 04/28 Acetaminophen PO 2216 Ibuprofen 600 MG Q6P PRN 04/28 220 DC PO Lisinopril 20 MG ONCE ONE 04/28 1930 CAN PO 04/28 193 Morphine Sulfate 2 MG Q4P PRN 04/29 0015 AC 04/29 IV 1201 Morphine Sulfate 2 MG ONCE ONE 04/28 2300 DC / IV 04/28 2301 2256 Morphine Sulfate 0 .STK-MED ONE 04/28 2255 DC .ROUTE Morphine Sulfate 0 .STK-MED ONE 04/28 1649 DC .ROUTE Morphine Sulfate 2 MG ONCE ONE 04/28 1645 DC 04/28 IV 04/28 1646 1653 Senna/Docusate Sodium 1 TAB AT BEDTIME 04/28 2199 AC 04/29 PO 0000 Review of Systems Review of Systems: She has no other complaints in the review of systems at this time. Past History Travel History Traveled to [place] past 21 day No Medical History Blood Transfusion Hx: No Neurological: TIA IN 2013 (4 years ago) EENT: TONSILLECTOMY Cardiovascular: hypertension Respiratory: NONE Gastrointestinal: NONE Hepatic: NONE Renal: KIDNEY INFECTION AT AGE OF 23 YRS. 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 Home Who Do You Live With? self Services at Home: None Smoking Status: Former Smoker Functional Ability Ambulation: cane Exam & Diagnostic Data Vital Signs and I&O Vital Signs Date Time Temp Pulse Resp B/P B/P Pulse O2 O2 Flow FiO2 Mean Ox Delivery Rate 04/29 0620 98.3 80 18 138/80 91 Room Air 04/28 2345 98.0 77 18 118/82 92 Room Air 04/28 2154 98.3 87 18 138/58 94 Room Air 04/28 2000 98.1 84 18 111/66 95 Room Air 04/28 1836 67 19 180/100 99 Room Air 04/28 1630 97.2 66 22 172/100 98 Room Air Intake & Output 04/29 1600 04/29 0800 04/29 0000 04/28 1600 04/28 0800 04/28 0000 Intake Total 100 Output Total 850 Balance -850 100 Intake, IV 100 Intake, Oral 0 Number 0 Bowel Movements Output, Urine 850 Patient 150 lb Weight Weight Reported by Patient Measurement Method Physical Exam: Elderly female in no acute distress. HEENT exam normal Neck veins not distended Carotids normal. Chest clear Heart regular rhythm, no murmurs, gallops or rubs Extremities left leg externally rotated and shortened, no edema, pulses present Labs/Brijesh Results: Laboratory Tests 04/29 04/28 0800 1645 Chemistry Sodium (137 - 145 mmol/L) 140 Potassium (3.5 - 5.1 mmol/L) 3.6 Chloride (98 - 107 mmol/L) 99 Carbon Dioxide (22 - 30 mmol/L) 30 Anion Gap (5 - 16) 10 BUN (7 - 17 mg/dL) 20 H Creatinine (0.5 - 1.0 mg/dL) 0.6 Estimated GFR (>60 ml/min) > 60 BUN/Creatinine Ratio (7 - 25 %) 33.3 H Coagulation PT (9.4 - 12.5 SEC) 11.7 INR (0.90 - 1.19) 1.12 APTT (25 - 37 SEC) 33 Hematology CBC w Diff NO MAN DIFF REQ NO MAN DIFF REQ WBC (4.8 - 10.8 /CUMM) 13.7 H 11.0 H RBC (4.20 - 5.40 /CUMM) 4.38 5.04 Hgb (12.0 - 16.0 G/DL) 12.4 14.4 Hct (37 - 47 %) 37.5 43.3 MCV (81.0 - 99.0 FL) 85.5 85.9 MCH (27.0 - 31.0 PG) 28.4 28.6 MCHC (33.0 - 37.0 G/DL) 33.2 33.3 RDW (11.5 - 14.5 %) 13.2 13.5 Plt Count (130 - 400 /CUMM) 323 356 MPV (7.4 - 10.4 FL) 9.2 8.5 Gran % (42.2 - 75.2 %) 78.0 H 76.8 H Lymphocytes % (20.5 - 51.1 %) 11.9 L 14.6 L Monocytes % (1.7 - 9.3 %) 8.9 7.1 Eosinophils % (0 - 5 %) 1.0 1.2 Basophils % (0.0 - 2.0 %) 0.2 0.3 Absolute Granulocytes (1.4 - 6.5 /CUMM) 10.7 H 8.5 H Absolute Lymphocytes (1.2 - 3.4 /CUMM) 1.6 1.6 Absolute Monocytes (0.10 - 0.60 /CUMM) 1.2 H 0.8 H Absolute Eosinophils (0.0 - 0.7 /CUMM) 0.1 0.1 Absolute Basophils (0.0 - 0.2 /CUMM) 0 0 02/05 02/05 1640 1615 Chemistry Sodium (137 - 145 mmol/L) 144 Potassium (3.5 - 5.1 mmol/L) 3.7 Chloride (98 - 107 mmol/L) 102 Carbon Dioxide (22 - 30 mmol/L) 28 Anion Gap (5 - 16) 15 BUN (7 - 17 mg/dL) 18 H Creatinine (0.5 - 1.0 mg/dL) 0.8 Estimated GFR (>60 ml/min) > 60 BUN/Creatinine Ratio (7 - 25 %) 22.5 Glucose (65 - 99 mg/dL) 111 H Calcium (8.4 - 10.2 mg/dL) 9.7 Total Bilirubin (0.2 - 1.3 mg/dL) 0.2 AST (14 - 36 U/L) 17 ALT (9 - 52 U/L) 24 Alkaline Phosphatase (<127 U/L) 113 Troponin I (< 0.11 ng/ml) < 0.01 Total Protein (6.3 - 8.2 g/dL) 6.7 Albumin (3.5 - 5.0 g/dL) 3.8 Globulin (1.9 - 4.2 gm/dL) 2.9 Albumin/Globulin Ratio (1.1 - 2.2 %) 1.3 Urines Urine Color (YEL,AMB,STR) YEL Urine Clarity (CLEAR) CLEAR Urine pH (5.0 - 8.0) 6.0 Ur Specific [place] (1.001 - 1.035) 1.025 Urine Protein (NEG,<30 MG/DL) NEG Urine Ketones (NEG) NEG Urine Nitrite (NEG) NEG Urine Bilirubin (NEG) NEG Urine Urobilinogen (0.1 - 1.0 EU/dl) 0.2 Ur Leukocyte Esterase (NEG) NEG Ur Microscopic EXAM NOT REQUIRED Urine Hemoglobin (NEG) NEG Urine Glucose (N MG/DL) NEG Diagnostic Data EKG Results The EKG shows sinus rhythm at a rate of 67. There are no QRS or ST-T wave abnormalities seen. CXR Results PATIENT: SYDNEY DAWKINS PRESENT AGE: 81 PATIENT ACCOUNT NO: [id number] : 37 LOCATION: [facility] ORDERING PHYSICIAN: Nathalie MICHAEL SERVICE DATE: 04/28/17 EXAM TYPE: RAD - XRY-CHEST XRAY, SINGLE VIEW; XRY-HIP 2-3 VIEWS, LEFT EXAMINATION:\\H\\ \\N\\AP view of the chest and 2 views of the left hip CLINICAL INFORMATION: Left hip pain. COMPARISON: Pelvic radiographs 07/17/2015 FINDINGS: Left hip: There is a comminuted intertrochanteric fracture of the proximal left femur with varus angulation of the major distal fracture fragment. Lesser trochanter avulsion fracture fragment. The femoral acetabular joint is maintained. No additional fractures are identified. Stable calcification within the left hemipelvis, again most likely a fibroid. Chest: Symmetric lung inflation. Linear atelectasis at the left lung base. No focal consolidation, pleural effusion, or pneumothorax. There is an old healed fracture of the proximal right humerus. There are a few old healed left-sided rib fractures. No acute fractures are identified. IMPRESSION: - There is an acute comminuted intertrochanteric fracture of the proximal left femur. - No acute findings within the chest. Chronic deformity of the proximal right humerus. DICTATED BY: Bj Garcia MD DATE/TIME DICTATED:04/28/171723 ROPE TOW OPERATOR:ALEXANDER DATE/TIME TRANSCRIBED:04/28/171723 CONFIDENTIAL, DO NOT COPY WITHOUT APPROPRIATE AUTHORIZATION. <Electronically signed in Other Vendor System> SIGNED BY: Bj Garcia MD 04/28/17 1731 Other Results CONCLUSIONS Mild concentric left ventricular hypertrophy. Normal left ventricular ejection fraction visually estimated at >65 Abnormal relaxation filling pattern of the left ventricle for age (stage 1 diastolic dysfunction). The left atrium is normal in size. Structurally normal mitral valve. Trace to mild mitral regurgitation. Focal thickening of the aortic valve cusps. No aortic stenosis. Right ventricular systolic pressure estimated to be within the normal range at 25-30 mmHg. Dami Faust M.D. (Electronically Signed) Final Date: 29 April 2017 12:58 Assessment/Plan Assessment/Plan Ms. Dawkins is a 81-year-old female who fell and fractured her left hip. She has underlying hypertension which is under control with multiple medications. She does not have any underlying heart disease by history. She denies any cardiac symptoms. Her EKG is benign. Her echocardiogram did not show any major abnormalities. Her blood pressure was elevated on admission but is improved. Her labs are all satisfactory. She did have a right hip fracture repair 2 years ago which she tolerated well. There is no cardiac contraindication to surgery at this time. I don't think she needs any further preoperative testing at this point. I would obtain a postoperative electrocardiogram on her. Copies To: Bailey LANCASTER,Celina Murillo; Dav LANCASTER,Andrzej Harkins Consult Acknowledgment - Thank you for your consult request.
--- NOTE | 2017-04-29 12:59 | ECHOCARDIOGRAM REPORT ---
SYDNEY DAWKINS Age: 81 : 1935 Gender: F Exam Date: 04/29/2017 11:31 Exam Location: [place] Ht (in): 61 Wt (lb): 150 BSA: 1.73 BP: 138 / 80 Ordering Physician: Karol Lopez MD Referring Physician: Karol Lopez MD Technologist: Keegan Mchugh [facility] Room Number: 225-1 Indications: Hypertension Rhythm: Sinus Technical Quality: Fair FINDINGS Left Ventricle Normal size left ventricle. Mild concentric left ventricular hypertrophy. Normal left ventricular ejection fraction visually estimated at >65 %. No obvious regional wall motion abnormalities. Abnormal relaxation filling pattern of the left ventricle for age (stage 1 diastolic dysfunction). Right Ventricle The right ventricle is normal in size and function. Right Atrium The right atrium is normal in size. Left Atrium The left atrium is normal in size. The interatrial septum is intact. Mitral Valve Structurally normal mitral valve. Trace to mild mitral regurgitation. Aortic Valve Focal thickening of the aortic valve cusps. No aortic stenosis. No aortic regurgitation. Tricuspid Valve Structurally normal tricuspid valve. Mild tricuspid regurgitation. Right ventricular systolic pressure estimated to be within the normal range at 25-30 mmHg. Pulmonic Valve Structurally normal pulmonic valve. There is no pulmonic regurgitation. Pericardium Normal pericardium without effusion. No pleural effusion. Great Vessels Normal aortic root dimension. The aortic arch and great vessels are well seen and are normal. CONCLUSIONS Mild concentric left ventricular hypertrophy. Normal left ventricular ejection fraction visually estimated at >65 Abnormal relaxation filling pattern of the left ventricle for age (stage 1 diastolic dysfunction). The left atrium is normal in size. Structurally normal mitral valve. Trace to mild mitral regurgitation. Focal thickening of the aortic valve cusps. No aortic stenosis. Right ventricular systolic pressure estimated to be within the normal range at 25-30 mmHg. Dami Faust M.D. (Electronically Signed) Final Date: 29 April 2017 12:58 MEASUREMENTS (Male / Female) Normal Values 2D ECHO LV Diastolic Diameter PLAX 4.5 cm 4.2 - 5.9 / 3.9 - 5.3 cm LV Systolic Diameter PLAX 2.7 cm 2.1 - 4.0 cm LV Fractional Shortening PLAX 40.0 % 25 - 46 % LV Ejection Fraction 2D Teich 70.8 % IVS Diastolic Thickness 1.2 cm LVPW Diastolic Thickness 1.1 cm LV Relative Wall Thickness 0.5 RV Internal Dim ED PLAX 3.6 cm 1.9 - 3.8 cm LVOT Diameter 1.7 cm Aortic Root Diameter 3.0 cm LA Systolic Diameter LX 2.8 cm 3.0 - 4.0 / 2.7 - 3.8 cm DOPPLER AV Peak Velocity 163.0 cm/s AV Peak Gradient 10.6 mmHg AV Mean Velocity 105.0 cm/s AV Mean Gradient 5.0 mmHg AV Velocity Time Integral 31.2 cm LVOT Peak Velocity 121.0 cm/s LVOT Peak Gradient 5.9 mmHg LVOT Mean Velocity 66.2 cm/s LVOT Mean Gradient 2.0 mmHg LVOT Velocity Time Integral 21.6 cm LVOT Stroke Volume 49.0 cm AV Area Cont Eq vti 1.6 cm AV Area Cont Eq pk 1.7 cm MV Peak Velocity 103.0 cm/s MV Peak Gradient 4.2 mmHg MV Mean Velocity 50.5 cm/s MV Mean Gradient 1.0 mmHg Mitral E Point Velocity 58.7 cm/s Mitral A Point Velocity 99.2 cm/s Mitral E to A Ratio 0.6 MV PHT Velocity 63.8 cm/s MV Deceleration [place] 214.0 cm/s MV Pressure Half Time 89.4 ms MV Area PHT 2.5 cm MV Deceleration Time 437.0 ms TR Peak Velocity 239.0 cm/s TR Peak Gradient 22.8 mmHg Right Atrial Pressure 5.0 mmHg Pulmonary Artery Systolic Pressu 27.8 mmHg Right Ventricular Systolic Press 27.8 mmHg PV Peak Velocity 93.7 cm/s PV Peak Gradient 3.5 mmHg PV Mean Velocity 64.7 cm/s PV Mean Gradient 2.0 mmHg PV Velocity Time Integral 16.0 cm LV E' Lateral Velocity 7.5 cm/s Mitral E to LV E' Lateral Ratio 7.8 LV E' Septal Velocity 6.2 cm/s Mitral E to LV E' Septal Ratio 9.4
[2017-04-29 14:29] VITALS: BP 125/80
[2017-04-29 16:00] VITALS: BP 120/54
--- NOTE | 2017-04-29 17:04 | Operative Report ---
Operative/Inv Procedure Report Surgery Date: 04/29/17 Name of Procedure: 1) Repair left intertrochanteric hip fracture with left short cephalo-medullary nail. 2) Closed treatment left distal fibular fracture. Pre-Operative Diagnosis: 1) Left displaced intertrochanteric hip fracture. 2) Left nondisplaced transverse distal fibular fracture. Post-Operative Diagnosis: Same. Estimated Blood Loss: 50ml to 100ml Surgeon/Entertainment Agent: Rosalia Gates / No hr assistant Anesthesia: laryngeal mask airway Monitors: EKG/blood pressure/oxygen saturation. IV Fluids: 1200 mL crystalloid. Implants: 1) Deandre 11 mm diameter 130 left short gamma cephallomedullary nail. 2) 100 mm lag screw x 1. 3) Distal locking bolt x 1. 4) Set screw x 1. Urine Output: 200 mL. Drains: None. Specimens: None. Microbiology: None. Tourniquet: None. Complications: None known. Condition: Stable. Operative Indication: The patient is a 81-year-old female with a history of frequent falls who is well -known to me. I did previously perform a repair of a prior contralateral right hip intertrochanteric fracture with a short cephalo-medullary nail. The patient sustained another mechanical fall last night this time resulting in a displaced ipsilateral left hip intertrochanteric fracture. The patient was also found to have some left ankle pain. X-rays of the ankle show a transverse distal fibula fracture. The ankle was splinted in a fiberglass splint in the emergency room. The patient was admitted to the medical service. She was optimized and ultimately cleared for definitive operative treatment of her left hip fracture. Given that the patient has known me for a number of years she did request if I could take over her case and performed her left hip surgery. I was certainly amenable to this. We did once again discuss the risks and benefits and expected outcomes of nonoperative management of her left hip fracture which was discouraged. We did discuss the same alternatively with surgical intervention with repair of the left hip fracture using a short cephalo-medullary nail device. The patient was generally familiar with all of the above having already gone through this successfully previously several years ago. The patient did wish to move forward with surgery and surgical consent was obtained. Operative/Procedure Note Note: DATE OF SERVICE: 04/29/2017. PREOPERATIVE DIAGNOSIS: 1) Left displaced intertrochanteric hip fracture. 2) Left nondisplaced low transverse distal fibula ankle fracture. POSTOPERATIVE DIAGNOSIS: 1) Left displaced intertrochanteric hip fracture. 2) Left nondisplaced low transverse distal fibula ankle fracture. PROCEDURE TITLE: 1) Repair of left intertrochanteric hip fracture with cephalomedullary nail device. 2) Closed treatment left ankle distal fibula fracture. ESTIMATED BLOOD LOSS: [100] mL SURGEON: Paulo Gates M.D. WATCH AND CLOCK REPAIRER: [None.] ANESTHESIA: [General endotracheal.] FINDINGS: 1. Acceptable fracture reduction, alignment, and length achieved at left hip intertrochanteric fracture. 2. Acceptable hardware position and fixation achieved at left hip fracture. 3. Low transverse left ankle lateral malleolus fracture. MONITORS: EKG, BP, O2 saturation, BIS. IV FLUIDS: [Lactated Ringer's.] IMPLANTS PLACED: Daendre left short gamma nail components. 1. 11 mm diameter 130 degree cephalomedullary nail. 2. 100 mm lag screw x1. 3. Set screw 1. 4. Distal locking bolt x1. URINE OUTPUT: 200 mL. EBL: 100 mL. Ml. DRAINS: [None.] SPECIMEN: [None] TOURNIQUET: [None.] COMPLICATIONS: None known. OPERATIVE INDICATIONS: See above. PROCEDURE DESCRIPTION/FINDINGS: The patient was brought to the operating room. [General endotracheal anesthesia was induced on the hospital bed.] The patient was then transferred to the OR fracture table and positioned on the fracture table in standard position for left hip repair surgery. This included placing the perineum down against a well-padded perineal post. The affected ipsilateral foot and ankle were removed from their emergency room fiberglass posterior splint and dressings. The ankle was examined and felt to be in overall good condition despite the known low transverse distal fibula fracture. We did elect to proceed with traction through the left ankle despite the presence of the low transverse distal fibula fracture. We therefore wrapped the ankle with a thick layer of Webril cast padding. After that we place the foot and the ankle in to a foam ankle sleeve which was wrapped with Coban to add friction, and then the padded foot and ankle were secured in the traction boot attachment to the fracture table. The unaffected right lower extremity was then placed into a position of flexion, abduction, and external rotation through the right hip and supported in that position with a well-padded leg solomon placed underneath the right leg. Once this was all in place, the center board of the fracture table was removed. We brought the C-arm in between the legs and we did confirm that we could image the left hip in both AP and lateral fluoroscopic projections. We next, with fluoroscopic assistance, performed and confirmed that we did achieve an acceptable reduction of the intertrochanteric hip fracture. At this point the left lower extremity was prepped and draped in the usual sterile fashion. The skin was marked with a skin marker after localization with a metallic instrument placed over the anterior aspect of the hip in order to help localize the level of the proximal tip of the greater trochanter. Once this was marked, we made a longitudinal skin incision beginning roughly 3 cm proximal to this marking on the skin correlating with the tip of the greater trochanter and extending the skin incision in a longitudinal direction proximally for about 3-4 cm. Sharp dissection was continued down through the skin and subcutaneous tissues. Hemostasis was achieved using electrocautery. Retractors were placed deeper into the wound. A Alford elevator was used to scrape the deep subcutaneous tissue off of the underlying deep fascia. The fascial layer was then divided longitudinally in line with the skin incision and the gluteal musculature was divided bluntly with fingertip dissection, following by a small amount of use of the Alford elevator to expose the tip of the greater trochanter. A guidewire for the entry reamer was placed down onto the tip of the greater trochanter and repositioned several times with fluoroscopic assistance until we were satisfied with the initial positioning of the entry pin tip. [The pin tip was then able to be easily pushed into the bone through the trip of the greater trochanter down into the intertrochanteric region and into the proximal femoral shaft manually without need for any type of power.] Once we were satisfied with the positioning of the entry guide pin in both AP and lateral fluoroscopic projections, we placed a soft tissue protector over the guidewire down between the gluteal musculature and brought that down to the tip of the greater trochanter. We confirmed placement of the soft tissue protector against the tip of the greater trochanter fluoroscopically. We next reamed with the entry reamer over the guide pin under fluoroscopic control into the upper femoral shaft. We removed the entry reamer as well as the guide pin. We did confirm, even prior to prepping the skin, by placing a 11 mm diameter nail still in its' packaging over the anterior thigh and then take fluoroscopic images showing that the patient's femoral canal was much wider than 11 mm and that a 11 mm diameter nail would be able to be passed easily into the upper femur. We therefore opened a Deandre 11 mm x 130 degree left short cephalo-medullary nail and attached this to the supine ready mix truck driver. We next advanced the tip of the nail down into the opening made in the top of the greater trochanter and pushed the nail very easily with essentially minimal resistance into the proximal femur and repositioned the nail until we were satisfied with the depth of the penetration of the nail within the proximal femur. We next attached the double-drill sleeve for the guide pin for the lag screw to its's slot in the supine ready mix truck driver. This was advanced down through the supine ready mix truck driver and down to the level of the skin. We next made a longitudinal skin incision large enough to accommodate passage of the double drill sleeve. This was done with a scalpel through the skin, and a deep scalpel to go through the deeper soft tissues. We used a Alford elevator to expose the lateral femoral cortex and we held open the soft tissues with a Britney clamp and advanced the double drill sleeve down to the lateral femoral cortex. Once we were satisfied with the positioning of the double drill sleeve fluoroscopically, we drilled up through the sleeve under fluoroscopic control to advance the guide pin for the lag screw. This did require several attempts until we were satisfied with the positioning of the guide wire. We next took a depth gauge measurement to determine the amount of pin within the bone to determine the length of the lag screw. Based upon that measurement, we decided to go with an 100 mm lag screw. We next reamed over the guidewire under fluoroscopic control with the reamer up through the lateral femoral cortex into the intertrochanteric region, then in to the femoral neck, and up into the femoral head. We next advanced an 100 mm lag screw with a manual T-handle screwdriver over the guidewire, again under fluoroscopic control, until it was advanced far enough into a well-seated position with reasonably good purchase within the femoral head. At this point we locked the lag screw within the nail by tightening the set screw from above. We next turned our attention toward placement of a distal locking screw. This was also done with the small double drill sleeve which was advanced down to the skin. Another skin incision and soft tissue dissection was performed to bring the double drill sleeve down to the lateral femoral cortical bone of the shaft. Once this was confirmed to be in good position fluoroscopically, we drilled across under fluoroscopic control and based upon that we placed an appropriate length distal locking bolt x1. Once all hardware was in place with the fracture well aligned and stabilized, we removed the supine ready mix truck driver. We obtained final AP and lateral fluoroscopic images of the hip with the fracture reduced and repaired and stabilized with hardware in acceptable position. These images were taken and saved for hard copy. Our attention was now directed toward closure. All wounds were copiously irrigated with saline. The fascial layer of the proximal 2 larger wounds were repaired using 0 Vicryl placed in interrupted buried fashion. The wounds were irrigated again. The subcutaneous tissues of the 2 larger wounds proximally were closed in layers with 0 Vicryl in the deep subcutaneous tissue layer to close down space, and then 2-0 Vicryl placed in simple interrupted buried fashion to approximate the upper more superficial subcutaneous tissues. The small wound distally for the locking bolt was repaired only with 2-0 Vicryl in the superficial subcutaneous tissues placed in interrupted buried fashion. The skin margins at all wounds were approximated with a skin stapler. All wounds were washed and dried, and then covered with Adaptic dressing, followed by sterile gauze dressings and abdominal pads which were held in place with paper tape. The center board to the table was returned. Both legs were taken down (Left leg taken out of the traction boot and padding and the right well leg taken down from the well-leg solomon). The left foot and ankle and leg were then wrapped with a reasonably thick layer of Webril asked padding. We next applied a new fiberglass short-leg posterior splint which was secured with Abbe bandages and allowed to set up at the ankle positioned at neutral dorsiflexion/plantar flexion. The patient was awakened from general anesthesia and then transferred to the hospital bed and brought to the recovery room in stable condition having tolerated the procedure well. Findings: 1) Acceptable fracture reduction, alignment, and length achieved at the left hip intertrochanteric fracture. 2) Acceptable hardware position and fixation achieved at the left hip. 3) Left low-transverse distal fibula fracture. Discharge Disposition: PACU
--- NOTE | 2017-04-29 17:12 | RADIOLOGY REPORT ---
EXAMINATION: CR HIP/INTRAOPERATIVE FLUOROSCOPY CLINICAL INDICATION: Left hip open reduction internal fixation. COMPARISON: Left hip films dated 04/28/2017. TECHNIQUE/FINDINGS: Fluoroscopic equipment was dedicated to the operating room for the performance of an intraoperative procedure. Several (14) spot films were acquired and are archived in PACS. Please refer to operative notes for procedural detail. FLUOROSCOPY TIME: 1 minute 12 seconds. IMPRESSION: Administrative dictation for intraoperative fluoroscopy and image archiving in PACS. Please refer to operative notes for details.
--- NOTE | 2017-04-29 17:41 | RADIOLOGY REPORT ---
EXAMINATION: XR ANKLE, LEFT CLINICAL INFORMATION: Question left ankle fracture status post fall at home. COMPARISON: 04/28/2017. TECHNIQUE: AP, lateral, and mortise views of the left ankle. FINDINGS: Splint material obscures fine bony detail. The known transverse fracture involving the lateral malleolus is faintly visualized. There has been no distraction of fracture fragments since the prior study. The ankle mortise appears congruent. The talar dome is intact. No additional fractures are visualized. There is an enthesophyte at the insertion of the Achilles tendon. IMPRESSION: There has been interval splinting of the left ankle. The nondisplaced fracture across the lateral malleolus is faintly visualized, without progressive distraction of the fracture fragments.
--- NOTE | 2017-04-29 20:16 | PN- Orthopedic ---
See Addendum Subjective Subjective: Postop check: Patient with mild pain l hip, awake and alert in bed, no other complaints, woke from anesthesia without difficulty. She is feeling well, family at bedside. Objective Vital Signs and I&Os Vital Signs Date Time Temp Pulse Resp B/P B/P Pulse O2 O2 Flow FiO2 Mean Ox Delivery Rate 04/29 1429 99.3 68 20 125/80 91 04/29 1202 78 140/84 04/29 1051 Room Air 04/29 0620 98.3 80 18 138/80 91 Room Air 04/28 2345 98.0 77 18 118/82 92 Room Air 04/28 2154 98.3 87 18 138/58 94 Room Air Intake & Output 04/29 1600 04/29 0804/29 0000 04/28 1600 04/28 0000 Intake Total 100 Output Total 150 850 Balance -150 -850 100 Intake, IV 100 Intake, Oral 0 Number 0 Bowel Movements Output, Urine 150 850 Patient 150 lb Weight Weight Reported by Patient Measurement Method Physical Exam: Well-developed well-nourished no apparent distress. HEENT: Atraumatic, extraocular motion intact Neck: Supple, no lymphadenopathy Respiratory: No respiratory distress Extremities: No edema Left lower extremity hip dressing was noted to be partially off, dressing was changed, dry sterile dressing applied. No active bleeding Mild thigh swelling No signs of infection. No shortening or rotation Hip range of motion is limited and without unexpected pain Neurovascularly intact distally Left lower leg in a posterior splint, well molded well-padded, Abbe wrap in place Neuro: Alert and oriented x3 Psych: Mood affect normal, normal memory normal judgment. Skin: Warm and dry, no rash on exposed skin Assessment/Plan Assessment/Plan Postop day #0 status post left hip open reduction internal fixation and splinting of the left ankle due to distal fibular fracture Toe-touch weightbearing Perioperative antibiotics. Dressing change postop day 2. Out of bed with physical therapy. Perioperative antibiotics. Labs in a.m. Eliquis to start on 2/8 AM for DVT prophylaxis, heparin sq ok for now. When necessary pain medication cont splint LLE Will follow Core Measures Venous Thromboembolism VTE Risk Factors Acute Medical Illness No Mechanical VTE Prophylaxis d/t Other No VTE Pharm Prophylaxis d/t NA PharmProphylax ordered
[2017-04-29 22:23] VITALS: BP 98/50
[2017-04-30 06:15] VITALS: BP 90/54
[2017-04-30] MEDS ORDERED: ELIQUIS2.5 M1 PO (07:08)
--- NOTE | 2017-04-30 07:18 | Patient Discharge Instructions ---
Discharge Instructions General Discharge Information You were seen/treated for: fall fibula fracture Special Instructions: 1. please follow up with your pcp in one week 2. please follow up with orthopedist Dr. Gates in 1-2 weeks Diet Continue normal diet: Yes Activity Full Activity/No Limits: No Activity Limited to: Weight bear as tolerated Other activity limits: TOE TOUCH WEIGHT BEARING Acute Coronary Syndrome Inclusion Criteria At DC or during hospital stay patient has or had the following: ACS DIAGNOSIS No Discharge Core Measures Meds if any: Prescribed or Continued at Discharge ESA/ARB if EF <40% No Meds if any: NOT Prescribed or Continued at Discharge Congestive Heart Failure Inclusion Criteria At DC or during hospital stay patient has or had the following: CHF DIAGNOSIS No Discharge Core Measures Meds if any: Prescribed or Continued at Discharge Meds if any: NOT Prescribed or Continued at Discharge Cerebrovascular accident Inclusion Criteria At DC or during hospital stay patient has or had the following: CVA/TIA Diagnosis No Discharge Core Measures Meds if any: Prescribed or Continued at Discharge Meds if any: NOT Prescribed or Continued at Discharge Venous thromboembolism Inclusion Criteria VTE Diagnosis No VTE Type NONE VTE Confirmed by (Test) NONE Discharge Core Measures - Per Current guidelines, there needs to be overlap - treatment for the first 5 days of Warfarin therapy. - If discharged on Warfarin prior to 5 days of - overlap therapy, the patient will need to be - assessed for post discharge needs including - *Post discharge parental anticoagulation - *Warfarin and/or parental anticoagulation education - *Follow up date to check INR post discharge At least 5 days overlap therapy as Inpatient No Meds if any: Prescribed or Continued at Discharge Note: Overlap Therapy is Warfarin and Anticoagulant Meds if any: NOT Prescribed or Continued at Discharge
--- NOTE | 2017-04-30 07:47 | History & Physical ---
General Information and HPI Source of Information: patient, old records Exam Limitations: no limitations Allergies/Medications Allergies: Coded Allergies: NO KNOWN ALLERGIES (05/15/11) Home Med list Atenolol 25 MG TABLET 1 TAB PO DAILY BP (Reported) Cholecalciferol (Vitamin D3) (Vitamin D3) 1,000 UNIT CAPSULE 3 CAP PO DAILY SUPPLEMENT (Reported) DILTIAZEM HCL (Diltiazem 24HR Cd) 240 MG CAP.ER.24H 1 CAP PO DAILY HEART ( Reported) Docusate Sodium 100 MG CAPSULE 100 MG PO BID PRN constipation Folic Acid (Unknown Strength) TAB (Unknown Dose) PO DAILY SUPPLEMENT ( Reported) Hydrochlorothiazide (Hydrodiuril 12.5 MG Tab) 12.5 MG CAPSULE 1 CAP PO DAILY BP (Reported) Lisinopril 20 MG TABLET 1 TAB PO DAILY BP (Reported) Potassium Chloride 10 MEQ TABLET.ER 1 TAB PO DAILY SUPPLEMENT (Reported) Selenomethionine (Selenium) 200 MCG TABLET 1 TAB PO DAILY SUPPLEMENT ( Reported) Past History Travel History Traveled to [place] past 21 day No Medical History Blood Transfusion Hx: No Neurological: TIA IN 2013 (4 years ago) EENT: TONSILLECTOMY Cardiovascular: hypertension Respiratory: NONE Gastrointestinal: NONE Hepatic: NONE Renal: KIDNEY INFECTION AT AGE OF 23 YRS. 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 Home Who Do You Live With? self Services at Home: None Smoking Status: Former Smoker Functional Ability Ambulation: cane Exam & Diagnostic Data Diagnostic Data EKG Results The EKG shows sinus rhythm at a rate of 67. There are no QRS or ST-T wave abnormalities seen. CXR Results PATIENT: SYDNEY DAWKINS PRESENT AGE: 81 PATIENT ACCOUNT NO: [id number] : 37 LOCATION: [facility] ORDERING PHYSICIAN: Nathalie MICHAEL SERVICE DATE: 04/28/17 EXAM TYPE: RAD - XRY-CHEST XRAY, SINGLE VIEW; XRY-HIP 2-3 VIEWS, LEFT EXAMINATION:\H\ \N\AP view of the chest and 2 views of the left hip CLINICAL INFORMATION: Left hip pain. COMPARISON: Pelvic radiographs 07/17/2015 FINDINGS: Left hip: There is a comminuted intertrochanteric fracture of the proximal left femur with varus angulation of the major distal fracture fragment. Lesser trochanter avulsion fracture fragment. The femoral acetabular joint is maintained. No additional fractures are identified. Stable calcification within the left hemipelvis, again most likely a fibroid. Chest: Symmetric lung inflation. Linear atelectasis at the left lung base. No focal consolidation, pleural effusion, or pneumothorax. There is an old healed fracture of the proximal right humerus. There are a few old healed left-sided rib fractures. No acute fractures are identified. IMPRESSION: - There is an acute comminuted intertrochanteric fracture of the proximal left femur. - No acute findings within the chest. Chronic deformity of the proximal right humerus. DICTATED BY: Bj Garcia MD DATE/TIME DICTATED:04/28/171723 ADVERTISING STRATEGIST:ALEXANDER DATE/TIME TRANSCRIBED:04/28/171723 CONFIDENTIAL, DO NOT COPY WITHOUT APPROPRIATE AUTHORIZATION. <Electronically signed in Other Vendor System> SIGNED BY: Bj Garcia MD 04/28/17 173 Other Results CONCLUSIONS Mild concentric left ventricular hypertrophy. Normal left ventricular ejection fraction visually estimated at >65 Abnormal relaxation filling pattern of the left ventricle for age (stage 1 diastolic dysfunction). The left atrium is normal in size. Structurally normal mitral valve. Trace to mild mitral regurgitation. Focal thickening of the aortic valve cusps. No aortic stenosis. Right ventricular systolic pressure estimated to be within the normal range at 25-30 mmHg. Dami Faust M.D. (Electronically Signed) Final Date: 29 April 2017 12:58 Core Measures/Misc (12/08) Cerebrovascular Accident CVA/TIA Diagnosis: No VTE (View Protocol) VTE Risk Factors Acute Medical Illness Sepsis (View protocol) Sepsis Present: No
--- NOTE | 2017-04-30 08:27 | PN- Orthopedic ---
See Addendum Subjective Subjective: No acute overnight events reported. Pain tolerable. No c/o chest pain, shortness of breath and difficulty breathing No complaints of nausea or vomitting. Chen catheter still in place. Objective Vital Signs and I&Os Vital Signs Date Time Temp Pulse Resp B/P B/P Pulse O2 O2 Flow FiO2 Mean Ox Delivery Rate 04/30 0515 97.8 68 20 90/54 94 Nasal 2.0L Cannula 04/30 0000 Nasal 2.0L Cannula 04/29 2223 97.7 67 20 98/50 96 Nasal Cannula 04/29 1600 97.9 64 20 120/54 04/29 1429 99.3 68 20 125/80 91 04/29 1202 78 140/84 04/29 1051 Room Air Intake & Output 04/30 0804/30 0000 04/29 1600 04/29 0000 Intake Total 400 400 100 Output Total 500 150 850 Balance -100 400 -150 -850 100 Intake, IV 300 200 100 Intake, Oral 100 200 0 Number 0 Bowel Movements Output, Urine 500 150 850 Patient 150 lb Weight Weight Reported by Patient Measurement Method Physical Exam: General: Alert and oriented x3, no acute distress Cards: RRR, s1s2 Pulm: Non-labored respiratory effort, nasal cannula o2 in place, breath sounds clear Abd: non-tender, non-distended Extremities: Moves all extremities, distal sensation intact. Skin warm and well perfused. Left ankle in posterior splint, capillary refill brisk to toes. Right calf soft and non-tender Surgical site: Left hip: Dressing dry and intact. Thigh compartment soft Assessment/Plan Assessment/Plan This is a 81 year old female, POD 1, s/p Left hip IMHS. Also has distal fibula fx -Eliquis 2.5 bid to start tomorrow, hep sub q for now for dvt ppx -OOB, ttwb -Dressing to be changed tomorrow -Complete domonique-op abx ppx, 1 additional dose to be administered -Primary management per medical team, okay per surgery to dc chen catheter Will discuss with Dr. Gates
[2017-04-30 09:40] LABS: ABSOLUTE BASOPHIL COUNT 0 /CUMM (0.0-0.2); MEAN CORPUSCULAR HGB 28.5 PG (27.0-31.0); MEAN PLATELET VOLUME 9.2 FL (7.4-10.4)
[2017-04-30 09:51] LABS: ABSOLUTE EOSINOPHIL COUNT 0.2 /CUMM (0.0-0.7); ABSOLUTE GRANULOCYTE CT 10.4 /CUMM (1.4-6.5); ABSOLUTE LYMPH COUNT 1.7 /CUMM (1.2-3.4); ABSOLUTE MONOCYTE COUNT 1.4 /CUMM (0.10-0.60); BASOPHIL % 0.2 % (0.0-2.0); EOSINOPHIL % 1.7 % (0-5); GRANULOCYTE % 75.9 % (42.2-75.2); MEAN CORPUSCULAR HGB CONC 33.3 G/DL (33.0-37.0); MEAN CORPUSCULAR VOLUME 85.5 FL (81.0-99.0); PLATELET COUNT 284 /CUMM (130-400); RBC DISTRIBUTION WIDTH 13.3 % (11.5-14.5); RED BLOOD CELL CT 3.61 /CUMM (4.20-5.40); WHITE BLOOD CELL COUNT 13.8 /CUMM (4.8-10.8)
[2017-04-30 09:52] LABS: HEMATOCRIT 30.8 % (37-47)
--- NOTE | 2017-04-30 11:20 | PN- Housestaff ---
Harish LANCASTER,Alison 04/30/17 1119: Subjective Follow-up For: falls left fibula fracture Subjective: patient is having pain after surgery 09/30. she also notes that her lower leg where she had the surgery will spasm. Otherwise no complaints and no events. No shortness of breath or chest pain. Review of Systems Constitutional: Reports: no symptoms. Cardiovascular: Reports: no symptoms. Respiratory: Reports: no symptoms. Gastrointestinal: Reports: no symptoms. Musculoskeletal: Reports: joint pain, muscle pain. Objective Last 24 Hrs of Vital Signs/I&O Vital Signs Date Time Temp Pulse Resp B/P B/P Pulse O2 O2 Flow FiO2 Mean Ox Delivery Rate 04/30 927 62 102/58 04/30 799 Nasal 1.0L Cannula 04/30 0615 97.8 68 20 90/54 94 Nasal 2.0L Cannula 04/30 0000 Nasal 2.0L Cannula 04/29 2223 97.7 67 20 98/50 96 Nasal Cannula 04/29 1600 97.9 64 20 120/54 04/29 1429 99.3 68 20 125/80 91 04/29 1202 78 140/84 Intake & Output 04/30 1600 04/30 0800 04/30 0000 Intake Total 400 400 Output Total 500 Balance -100 400 Intake, IV 300 200 Intake, Oral 100 200 Output, Urine 500 Physical Exam General Appearance: Alert, Oriented X3, Cooperative, No Acute Distress HEENT: Atraumatic, EOMI, Mucous Membr. moist/pink Cardiovascular: Regular Rate, Normal S1, Normal S2, No Murmurs Lungs: Clear to Auscultation, Normal Air Movement Abdomen: Normal Bowel Sounds, Soft, No Tenderness, No Hepatospenomegaly Extremities: No Clubbing, No Cyanosis, Normal Pulses, left foot is bandaged post -surgery Current Medications: Current Medications Sig/Sita Start time Last Medication Dose Route Stop Time Status Admin Acetaminophen 650 MG Q6P PRN 04/29 1745 AC PO Acetaminophen 1,000 MG .STK-MED ONE 04/29 1352 DC IV 04/29 1353 Acetaminophen 650 MG Q6P PRN 04/28 2200 DC PO Apixaban 2.5 MG BID 05/01 1000 AC PO Atenolol 25 MG DAILY 04/30 1000 AC PO Atenolol 25 MG DAILY 04/29 1000 DC 04/29 PO 1202 Bisacodyl 5 MG DAILY 04/30 1047 AC PO Cefazolin Sodium 2 GM Q8H 04/30 0100 DC 04/30 N/A 1 UNIT IV 04/30 0929 0928 Cefazolin Sodium 2 GM Q8H 04/29 2300 DC N/A 1 UNIT IV 04/30 0729 Dextrose/Sodium 1,000 ML Q20H 04/30 0930 CAN Chloride IV Dextrose/Sodium 1,000 ML Q20H 04/29 1330 DC Chloride IV 04/30 0929 Diltiazem HCl 240 MG DAILY 04/30 1000 AC 04/30 PO 0927 Diltiazem HCl 240 MG DAILY 04/29 1000 DC 04/29 PO 1202 Fentanyl Citrate 250 MCG .STK-MED ONE 04/29 1352 DC IM 04/29 1353 Haloperidol 5 MG .STK-MED ONE 04/29 1403 DC IM 04/29 1404 Heparin Sodium 5,000 UNIT Q8 04/29 2200 AC 04/30 (Porcine) SC 0624 Heparin Sodium 5,000 UNIT Q8 04/28 2200 DC 04/29 (Porcine) SC 0620 Hydrocodone Bitart/ 1 TAB Q6P PRN 04/29 1745 AC 04/30 Acetaminophen PO 0402 Hydrocodone Bitart/ 1 TAB Q6P PRN 04/28 2200 DC 04/28 Acetaminophen PO 2216 Hydromorphone HCl 2 MG .STK-MED ONE 04/29 1704 DC IM 04/29 1705 Hydromorphone HCl 2 MG .STK-MED ONE 04/29 1655 DC IM 04/29 1656 Hydromorphone HCl 2 MG .STK-MED ONE 04/29 1352 DC IM 04/29 1353 Methocarbamol 500 MG TIDPRN PRN 04/29 2145 AC 04/30 PO 0506 Midazolam HCl 2 MG .STK-MED ONE 04/29 1352 DC IM 04/29 1353 Morphine Sulfate 2 MG Q4P PRN 04/29 1745 AC 04/30 IV 0806 Morphine Sulfate 2 MG Q4P PRN 04/29 0015 DC 04/29 IV 1201 Omeprazole 20 MG DAILY AC 05/01 07 DC PO Omeprazole 20 MG DAILY AC 05/01 699 AC PO Ondansetron HCl 4 MG .STK-MED ONE 04/29 1403 DC IM 04/29 1404 Senna/Docusate Sodium 1 TAB AT BEDTIME 04/29 2200 AC 04/29 PO 2233 Senna/Docusate Sodium 1 TAB AT BEDTIME 04/28 2200 DC 04/29 PO 0000 Last 24 Hrs of Lab/Brijesh Results Last 24 Hrs of Labs/Mics: Laboratory Tests 04/30/17 0810: Anion Gap 6, Estimated GFR > 60, BUN/Creatinine Ratio 31.7 H, CBC w Diff NO MAN DIFF REQ, RBC 3.61 L, MCV 85.5, MCH 28.5, MCHC 33.3, RDW 13.3, MPV 9.2, Gran % 75.9 H, Lymphocytes % 12.1 L, Monocytes % 10.1 H, Eosinophils % 1.7, Basophils % 0.2, Absolute Granulocytes 10.4 H, Absolute Lymphocytes 1.7, Absolute Monocytes 1.4 H, Absolute Eosinophils 0.2, Absolute Basophils 0 Assessment/Plan Assessment: 81-year-old female with a past medical history of hypertension and incidental brain tumor, right hip fracture 2 years ago, and left ankle fracture 4 years ago presenting for left hip pain status post fall and found to have a left fibular fracture. Plan: #Acute left fibular fracture -Postop day #1 status post left hip open reduction internal fixation and splinting of the left ankle due to distal fibular fracture -Patient received last dose of perioperative cefazolin today. -dressing will be changed tomorrow -Cardiac consult was called prior to surgery and they have given clearance for this lower risk procedure. -Echo for further periop workup was done before cardio consult was in. It showed EF of >65% with stage I diastolic dysfunction. We will do post surgery EKG. Also dc fluid and start diet post surgery. -prn pain meds pathway - patient prefers Vicodin but does not some pain still. She is on morphine as well 2mgq4 PRN. We will also add tramadol 50mg q6 as she is still in 7/10 pain. -we will start anticoagulation with eliquis bid 2.5mg tomorrow morning -Patient's DEXA is -3.6 but she is not on alendronate. It is recommended she start it on discharge and we will prescribe. -Patient is toe touch weightbearing and PT will see her. -Has aprli post-op. Patient is still not moving much because of pain. We will keep chen and reevaluate tomorrow. surgery is ok with removal. -We will give IS to prevent post surgical atelectasis. #Hypertension BP Max 180/100 on admission Current BP: 118/82 #Full code #DVT prophylaxis Problem List: 1. Closed fracture of left distal fibula Pain Ratin Pain Location: left lower leg Pain Goal: Pain 4 or less Pain Plan: pain pathway Tomorrow's Labs & Rationales: karine Joy Wisdom 04/30/17 1256: Attending MD Review Statement Attending Statement Attending MD Statement: examined this patient, discuss w/resident/PA/DUCT INSTALLER, agreed w/resident/PA/DUCT INSTALLER, discussed with family, reviewed EMR data (avail), discussed with nursing, discussed with case mgmt, reviewed images, amended to note Attending Assessment/Plan: Assessment and plan 81-year-old female came to ER after mechanical fall. No prodromal symptoms, no loss of consciousness, no head strike. She is found to have left intertrochanteric femur fracture and distal left fibula acute transverse fracture. Patient has no chest pain or chest tightness or dyspnea on exertion, never had coronary artery disease and stents of RCRI is low, good exercise tolerance. 1 Left intertrochanteric femur fracture s/p repair. 2 Left fibula fracture 3. Hypertension - Sharla-operative care, incentive spirometry. - Continue her oral antihypertensives - Adequate pain control. - Follow orthopedics recommendations - Cardiology appreciated - DVT prophylaxis/eliquis as per orthopedics.
[2017-04-30 14:44] VITALS: BP 118/72
--- NOTE | 2017-04-30 18:34 | Discharge Summary ---
See Addendum Visit Information Visit Dates Admission Date: 04/28/17 Discharge Date: 05/02/17 Hospital Course Course Attending Physician: Joy Wisdom MD Primary Care Physician: Jose Brewster DO Hospital Course: Patient is a 81-year-old F with PMH of Hypertension, multiple fractures, right hip replacement came to ER after mechanical fall. She is found to have left intertrochanteric femur fracture and distal left fibula acute transverse fracture. At baseline patient has no chest pain or chest tightness or dyspnea on exertion, never had coronary artery disease and stents of RCRI is low, good exercise tolerance. She used to do alize chi until 6 months back. Admitted to general medicine floor for medical optimization during pre and postoperative course. Problem list Left intertrochanteric femur fracture Left fibula fracture Left intertrochanteric comminuted fracture and left fibula fracture She had a low RCRI score of 0.4% and considered as low risk for surgery. Cardiology risk startified and requested a postoperative EKG. She underwent Repair of left intertrochanteric hip fracture with left short cephalo- medullary nail and Closed treatment of left distal fibular fracture on day 1 of hospitalization. Pre and postoperatively she received 2 doses of antibiotics. She remained hemodaynamically stable although had significant pain. She was placed on toe touch weight bearing status. Pain control with vicodin, tramadol and tyelenol. Started on apixaban 2.5mg BID from 05/01/17 till 05/29/17 for a total of 4 weeks. HTN Continued atenolol 25mg and diltiazem daily. Held lisinopril and HCTZ due to surgery and postoperative borderline blood pressure. Restart lisinopril 20mg and HCTZ 12.5mg as per her BP. Continue bowel regimen DVT prophylaxis Apixaban 2.5mg BID from POD #2 Code status full code Complications: None Allergies: Coded Allergies: NO KNOWN ALLERGIES (05/15/11) Disposition Summary Disposition Principal Diagnosis: Left intertrochanteric osteoporotic femur fracture s/p fall Left fibula fracture Additional Diagnosis: HTN Discharge Disposition: short term rehab Discharge Instructions General Discharge Information Code Status: Full Code Patient's Diet: as tolerated Patient's Activity: as tolerated Follow-Up Instructions/Appts: Please follow up with your PCP in a week Please follow up with your orthopedician in a week Please continue toe touch weight bearing status Continue apixaban 2.5mg BID for a total of 4 weeks - till 05/29/17 Medications at Discharge Discharge Medications: Continue taking these medications: Atenolol (Atenolol) 25 MG TABLET 1 Tablet ORAL DAILY Qty = 90 Comments: Last Taken: 07/21/15 Time: 0942 AM Potassium Chloride (Potassium Chloride) 10 MEQ TABLET.ER 1 Tablet ORAL DAILY Qty = 90 Comments: Last Taken: 07/21/15 Time: 0941 AM DILTIAZEM HCL (Diltiazem 24HR Cd) 240 MG CAP.ER.24H 1 Capsule ORAL DAILY Qty = 90 Comments: Last Taken: 07/21/15 Time: 0942 AM Hydrochlorothiazide (Hydrodiuril 12.5 MG Tab) 12.5 MG CAPSULE 1 Capsule ORAL DAILY Qty = 90 Comments: Last Taken: 07/21/15 Time: 0941 AM Lisinopril (Lisinopril) 20 MG TABLET 1 Tablet ORAL DAILY Qty = 90 Comments: Last Taken: 07/21/15 Time: 0941 AM Folic Acid (Folic Acid) (Unknown Strength) TAB Unknown Dose ORAL DAILY Comments: NOT GIVEN Cholecalciferol (Vitamin D3) (Vitamin D3) 1,000 UNIT CAPSULE 3 Capsule ORAL DAILY Comments: NOT GIVEN Selenomethionine (Selenium) 200 MCG TABLET 1 Tablet ORAL DAILY Comments: NOT GIVEN Docusate Sodium (Docusate Sodium) 100 MG CAPSULE 100 Milligram ORAL TWICE DAILY as needed for constipation Days = 14 Comments: Last Taken: 07/21/15 Time: 0941 AM Start taking the following new medications: Hydrocodone/Acetaminophen (Hydrocodon-Acetaminophen 5-325) 5 MG-325 MG TABLET 1 Tablet ORAL EVERY SIX HOURS NEEDED as needed for PAIN SCALE 4-6 ( MODERATE) Qty = 6 No Refills Apixaban (Eliquis) 2.5 MG TABLET 1 Tablet ORAL TWICE DAILY Qty = 60 No Refills Tramadol HCl (Tramadol HCl) 50 MG TABLET 1 Tablet ORAL EVERY SIX HOURS NEEDED as needed for pain Qty = 20 No Refills Copies To: Jose Brewster DO, MD Review Statement Documenting Attending: Joy Wisdom MD
[2017-04-30 22:39] VITALS: BP 120/56
[2017-05-01 07:38] VITALS: BP 110/60
--- NOTE | 2017-05-01 08:10 | PN- Housestaff ---
Harish LANCASTER,Alison 05/01/17 0810: Subjective Follow-up For: falls fibula and femur fractures Subjective: Patient has slightly less pain today 08/31. same left leg spasms. Review of Systems Constitutional: Reports: no symptoms. Cardiovascular: Reports: no symptoms. Respiratory: Reports: no symptoms. Gastrointestinal: Reports: no symptoms. Musculoskeletal: Reports: joint pain, muscle pain. Skin: Reports: no symptoms. Objective Last 24 Hrs of Vital Signs/I&O Vital Signs Date Time Temp Pulse Resp B/P B/P Pulse O2 O2 Flow FiO2 Mean Ox Delivery Rate 05/01 1830 110/68 05/01 1341 97.9 64 20 90/60 94 Room Air 05/01 1109 Room Air Room Air 05/01 0802 85 110/70 05/01 0800 94 Nasal 1.0L Cannula 05/01 0738 98.0 81 24 110/60 90 Nasal 0.5L Cannula 05/01 0000 96 Nasal 1.0L Cannula 04/30 2239 99.0 94 24 120/56 91 Nasal 0.5L Cannula Intake & Output 05/01 1600 05/01 0800 05/01 0000 Intake Total 500 100 250 Output Total 250 425 350 Balance 250 -325 -100 Intake, Oral 500 100 250 Output, 50 Emesis Output, Urine 200 425 350 Physical Exam General Appearance: Alert, Oriented X3, Cooperative, No Acute Distress Cardiovascular: Regular Rate, Normal S1, Normal S2, No Murmurs, Gallops Lungs: Clear to Auscultation, Normal Air Movement Abdomen: Normal Bowel Sounds, Soft, No Tenderness Neurological: Normal Speech, Sensation Intact Extremities: No Edema, Normal Pulses, No Tenderness/Swelling Vascular: Normal Pulses, Pulses Symmetrical Current Medications: Current Medications Sig/Sita Start time Last Medication Dose Route Stop Time Status Admin Acetaminophen 650 MG .STK-MED ONE 05/01 0956 DC PO 05/01 0957 Acetaminophen 650 MG Q6P PRN 04/29 1745 AC 05/01 PO 0958 Apixaban 2.5 MG BID 05/01 1000 AC 05/01 PO 0802 Atenolol 25 MG DAILY 04/30 1000 AC 05/01 PO 0802 Bisacodyl 5 MG DAILY 04/30 1047 AC 05/01 PO 0958 Diltiazem HCl 240 MG DAILY 04/30 1000 AC 05/01 PO 0802 Heparin Sodium 5,000 UNIT Q8 04/29 2200 AC 05/01 (Porcine) SC 1353 Hydrocodone Bitart/ 1 TAB Q6P PRN 04/29 1745 AC 04/30 Acetaminophen PO 2109 Methocarbamol 500 MG TIDPRN PRN 04/29 2145 AC 04/30 PO 0506 Morphine Sulfate 2 MG Q4P PRN 05/01 1015 AC 05/01 IV 1803 Morphine Sulfate 2 MG Q4P PRN 04/30 1500 DC 05/01 IV 0801 Morphine Sulfate 2 MG Q4P PRN 04/29 1745 DC 05/01 IV 0131 Omeprazole 20 MG DAILY AC 05/01 0700 DC PO Omeprazole 20 MG DAILY AC 05/01 0700 AC 05/01 PO 0543 Ondansetron HCl 4 MG ONCE ONE 05/01 1130 DC 05/01 PO 05/01 1131 1128 Ondansetron HCl 4 MG .STK-MED ONE 05/01 1105 DC IM 05/01 1106 Polyethylene Glycol 17 GM DAILY 04/30 1531 AC 05/01 PO 0802 Senna/Docusate Sodium 1 TAB AT BEDTIME 04/29 2200 AC 04/30 PO 2109 Tramadol HCl 50 MG Q6P PRN 04/30 1445 AC 05/01 PO 0516 Last 24 Hrs of Lab/Brijesh Results Last 24 Hrs of Labs/Mics: Laboratory Tests 05/01/17 1205: Anion Gap 11, Estimated GFR > 60, BUN/Creatinine Ratio 30.0 H, CBC w Diff NO MAN DIFF REQ, RBC 3.71 L, MCV 86.4, MCH 28.2, MCHC 32.6 L, RDW 13.4, MPV 9.6, Gran % 80.6 H, Lymphocytes % 7.5 L, Monocytes % 10.8 H, Eosinophils % 1.0, Basophils % 0.1, Absolute Granulocytes 13.1 H, Absolute Lymphocytes 1.2, Absolute Monocytes 1.8 H, Absolute Eosinophils 0.2, Absolute Basophils 0 Assessment/Plan Assessment: 81-year-old female with a past medical history of hypertension and incidental brain tumor, right hip fracture 2 years ago, and left ankle fracture 4 years ago presenting for left hip pain status post fall and found to have a left fibular fracture as well as an acute comminuted intertrochanteric fracture of the proximal left femur on xray hip and leg Plan: #Acute left fibular fracture -Postop day #2 status post left hip open reduction internal fixation and splinting of the left ankle due to distal fibular fracture -Patient received perioperative cefazolin -LEFT HIP SOFT, SOME ECCHYMOSIS AROUND INCISIONS, NO ERYTHEMA OR DRAINAGE, XIOMARA IN PLACE, DRESSING CHANGED. DISTAL SONSORY AND MOTOR FUNT INTACT. -Cardiac consult was called prior to surgery and they have given clearance for this lower risk procedure. -Echo for further periop workup was done before cardio consult was in. It showed EF of >65% with stage I diastolic dysfunction. -prn pain meds pathway - patient prefers Vicodin but does not some pain still. She is on morphine as well 2mgq4 PRN. We did also add tramadol 50mg q6 as she is still in 7/10 pain. -we started Eliquis 2.5mg bid which will be continued for 4 weeks. -Patient's DEXA is -3.6 but she is not on alendronate. It is recommended she start it so instructions will be sent to pcp for evaluation. -Patient is toe touch weightbearing and PT is suggesting STR, case managment to help with placement. -Removed chen today as per surgery. -We will give IS to prevent post surgical atelectasis. #Hypertension BP Max 180/100 on admission Current BP: 118/82 #Full code #DVT prophylaxis Problem List: 1. Fibula fracture 2. Closed fracture of left distal fibula 3. Closed left hip fracture Pain Ratin Pain Location: left hip Pain Goal: Pain 7 or less Pain Plan: morphine 2mg q4, tylenol, vicodin Tomorrow's Labs & Rationales: none Joy Wisdom 05/01/17 1307: Attending MD Review Statement Attending Statement Attending MD Statement: examined this patient, discuss w/resident/PA/BASKET MENDER, agreed w/resident/PA/BASKET MENDER, discussed with family, reviewed EMR data (avail), discussed with nursing, discussed with case mgmt, reviewed images, amended to note Attending Assessment/Plan: Assessment and plan 81-year-old female came to ER after mechanical fall s/p hip fracture s/p repair POD2 1 Left intertrochanteric femur fracture s/p repair. 2 Left fibula fracture 3. Hypertension - Sharla-operative care, incentive spirometry. dced chen, pads at discharge. - Continue her oral antihypertensives - Adequate pain control. - Follow orthopedics recommendations - Cardiology appreciated - DVT prophylaxis/eliquis as per orthopedics. Patient medically stable for dc to STR. Awaiting bed availability. FOLLOW UP PCP in 5-7 days Orthopedics in 2 weeks of dc
--- NOTE | 2017-05-01 09:26 | PN- Orthopedic ---
See Addendum Subjective Subjective: PT IN BED, MINIMAL PAIN. OCCASIONALLY HAS "MUSCLE SPASMS" DOWN HER THIGH. TOLERATING DIET. SARABIA STILL IN PLACE. DENIES FEVERS, CP/ SOB Objective Vital Signs and I&Os Vital Signs Date Time Temp Pulse Resp B/P B/P Pulse O2 O2 Flow FiO2 Mean Ox Delivery Rate 05/01 801 85 110/70 05/01 0738 98.0 81 24 110/60 90 Nasal 0.5L Cannula 05/01 0000 96 Nasal 1.0L Cannula 04/30 2239 99.0 94 24 120/56 91 Nasal 0.5L Cannula 04/30 1600 Nasal 1.0L Cannula 04/30 1444 97.7 85 20 118/72 96 04/30 1146 Room Air 04/30 09 62 102/58 Intake & Output 05/01 1600 05/01 0800 05/01 0000 04/30 1600 04/30 0800 04/30 0000 Intake Total 957 854 1516 400 400 Output Total 425 350 650 500 Balance -325 -100 350 -100 400 Intake, IV 100 300 200 Intake, Oral 100 250 900 100 200 Output, Urine 425 350 650 500 Physical Exam: GEN-NAD RESP-CLEAR CARDIO-RRR ABD-ND, SOFT, NT EXT- LEFT HIP SOFT, SOME ECCHYMOSIS AROUND INCISIONS, NO ERYTHEMA OR DRAINAGE, XIOMARA IN PLACE, DRESSING CHANGED. DISTAL SONSORY AND MOTOR FUNT INTACT Assessment/Plan Assessment/Plan 81YO F SP LEFT HIP IMHS. LEFT HIP FX AND LEFT DISTAL FIB FX ON 04/28. STABLE DC SARABIA, PT HAS INCONTINENCE SO WILL NEED PAD DC SQ HEPARIN, START ELIQUIS BID FOR DVT PPX PHYSICAL THERAPY- TTWB REG DIET ENCOURAGE IS PAIN MANAGEMENT FOLLOW- LABS Core Measures Venous Thromboembolism VTE Risk Factors Acute Medical Illness No Mechanical VTE Prophylaxis d/t Other No VTE Pharm Prophylaxis d/t NA PharmProphylax ordered
[2017-05-01] MEDS ORDERED: TRAMADOL HCL50 M1 PO (11:58)
[2017-05-01] MEDS ORDERED: HYDROCODON-ACE1 EAC2 PO (12:00)
[2017-05-01 13:16] LABS: ABSOLUTE BASOPHIL COUNT 0 /CUMM (0.0-0.2); ABSOLUTE EOSINOPHIL COUNT 0.2 /CUMM (0.0-0.7); ABSOLUTE GRANULOCYTE CT 13.1 /CUMM (1.4-6.5); ABSOLUTE LYMPH COUNT 1.2 /CUMM (1.2-3.4); ABSOLUTE MONOCYTE COUNT 1.8 /CUMM (0.10-0.60); BASOPHIL % 0.1 % (0.0-2.0); GRANULOCYTE % 80.6 % (42.2-75.2); MEAN CORPUSCULAR HGB 28.2 PG (27.0-31.0); MEAN CORPUSCULAR HGB CONC 32.6 G/DL (33.0-37.0); MEAN CORPUSCULAR VOLUME 86.4 FL (81.0-99.0); MEAN PLATELET VOLUME 9.6 FL (7.4-10.4); PLATELET COUNT 308 /CUMM (130-400); RBC DISTRIBUTION WIDTH 13.4 % (11.5-14.5); RED BLOOD CELL CT 3.71 /CUMM (4.20-5.40); WHITE BLOOD CELL COUNT 16.2 /CUMM (4.8-10.8)
[2017-05-01 13:41] VITALS: BP 90/60
[2017-05-01 18:30] VITALS: BP 110/68
[2017-05-01 22:08] VITALS: BP 114/60
[2017-05-02 06:33] VITALS: BP 94/54
--- NOTE | 2017-05-02 07:25 | PN- Housestaff ---
Harish LANCASTER,Alison 05/02/17 0725: Subjective Follow-up For: falls fibula and femur fractures Subjective: patient feeling good today, no pain. no events. Review of Systems Constitutional: Reports: no symptoms. EENTM: Reports: no symptoms. Cardiovascular: Reports: no symptoms. Respiratory: Reports: no symptoms. Gastrointestinal: Reports: no symptoms. Musculoskeletal: Reports: joint pain, muscle pain. Skin: Reports: no symptoms. Objective Last 24 Hrs of Vital Signs/I&O Vital Signs Date Time Temp Pulse Resp B/P B/P Pulse O2 O2 Flow FiO2 Mean Ox Delivery Rate 05/02 925 94 100/62 05/02 0633 99.4 94 20 94/54 92 Room Air 05/01 2208 98.2 83 18 114/60 91 Room Air 05/01 1830 110/68 Intake & Output 05/02 1600 05/02 0800 05/02 0000 Intake Total 140 100 Output Total 250 Balance 140 -150 Intake, IV 40 Intake, Oral 100 100 Output, Urine 250 Physical Exam General Appearance: Alert, Oriented X3, Cooperative, No Acute Distress Skin: No Rashes, No Breakdown, No Significant Lesion Sepsis Skin Exam (color): Normal for Ethnicity HEENT: Atraumatic, EOMI, Mucous Membr. moist/pink Cardiovascular: Regular Rate, Normal S1, Normal S2, No Murmurs Lungs: Clear to Auscultation, Normal Air Movement Abdomen: Normal Bowel Sounds, Soft, No Tenderness, No Hepatospenomegaly, No Masses Neurological: Normal Speech Extremities: No Clubbing, No Cyanosis, No Edema, Normal Pulses Vascular: Normal Pulses Current Medications: Current Medications Sig/Sita Start time Last Medication Dose Route Stop Time Status Admin Acetaminophen 650 MG Q6P PRN 04/29 1745 AC 05/01 PO 0958 Apixaban 2.5 MG BID 05/01 1000 AC 05/02 PO 09 Atenolol 25 MG DAILY 04/30 1000 AC 05/02 PO 09 Bisacodyl 10 MG ONCE PRN 05/02 1100 AC ME Bisacodyl 10 MG ONCE ONE 05/02 1045 DC ME 05/02 1046 Bisacodyl 5 MG DAILY 04/30 1047 AC 05/02 PO 09 Diltiazem HCl 240 MG DAILY 04/30 1000 AC 05/02 PO 09 Docusate Sodium 100 MG DAILY 05/02 1031 AC 05/02 PO 1108 Heparin Sodium 5,000 UNIT Q8 04/29 2200 DC 05/02 (Porcine) SC 0558 Hydrocodone Bitart/ 1 TAB Q6P PRN 04/29 1745 AC 05/02 Acetaminophen PO 0934 Magnesium Citrate 300 ML ONE ONE 05/02 1100 DC 05/02 PO 05/02 1101 1104 Methocarbamol 500 MG TIDPRN PRN 04/29 2145 AC 04/30 PO 0506 Morphine Sulfate 2 MG Q4P PRN 05/01 1015 DC 05/02 IV 0603 Omeprazole 20 MG DAILY AC 05/01 0700 AC 05/02 PO 0558 Oxybutynin Chloride 2.5 MG TID 05/02 1000 AC 05/02 PO 1103 Polyethylene Glycol 17 GM DAILY 05/02 1031 CAN PO Polyethylene Glycol 17 GM DAILY 04/30 1531 AC 05/02 PO 0926 Senna/Docusate Sodium 1 TAB AT BEDTIME 04/29 2200 AC 05/01 PO 2211 Tramadol HCl 50 MG Q6P PRN 04/30 1445 AC 05/02 PO 1107 Assessment/Plan Assessment: 81-year-old female with a past medical history of hypertension and incidental brain tumor, right hip fracture 2 years ago, and left ankle fracture 4 years ago presenting for left hip pain status post fall and found to have a left fibular fracture as well as an acute comminuted intertrochanteric fracture of the proximal left femur on xray hip and leg Plan: #Acute left fibular fracture -Postop day #3 status post left hip open reduction internal fixation and splinting of the left ankle due to distal fibular fracture -Patient received perioperative cefazolin -LEFT HIP SOFT, SOME ECCHYMOSIS AROUND INCISIONS, NO ERYTHEMA OR DRAINAGE, XIOMARA IN PLACE, DRESSING CHANGED. DISTAL SONSORY AND MOTOR FUNT INTACT. -Cardiac consult was called prior to surgery and they have given clearance for this lower risk procedure. -Echo for further periop workup was done before cardio consult was in. It showed EF of >65% with stage I diastolic dysfunction. -prn pain meds pathway - patient prefers Vicodin but does not some pain still. She is on morphine as well 2mgq4 PRN. We did also add tramadol 50mg q6 as she is still in 7/10 pain. SHE WILL BE DISCHARGED ON VICODIN AND TRAMADOL 50Q6. -we started Eliquis 2.5mg bid which will be continued for 4 weeks PER SURGICAL PA. -Patient's DEXA is -3.6 but she is not on alendronate. It is recommended she start it so instructions will be sent to pcp for evaluation. -Patient is toe touch weightbearing and PT is suggesting STR, case managment to help with placement. -She was on IS to prevent post surgical atelectasis. #Hypertension BP Max 180/100 on admission Current BP: 118/82 #Urine leakage -Patient has been told she needs medications for urinary leakage but could not afford them. -We will give her oxybutinin 2.5 tid here and continue her on them in STR. She will be advised to discuss with PCP. #Full code #DVT prophylaxis Problem List: 1. Fibula fracture 2. Closed fracture of left distal fibula 3. Closed left hip fracture Pain Ratin Pain Location: left hip Pain Goal: Pain 4 or less Pain Plan: tramadol morphine vicodin Tomorrow's Labs & Rationales: none Joy Wisdom 05/02/17 1307: Attending MD Review Statement Attending Statement Attending MD Statement: examined this patient, discuss w/resident/PA/REED FIXER, agreed w/resident/PA/REED FIXER, discussed with family, reviewed EMR data (avail), discussed with nursing, discussed with case mgmt, reviewed images, amended to note Attending Assessment/Plan: Assessment and plan 81-year-old female came to ER after mechanical fall s/p hip fracture s/p repair POD3 1 Left intertrochanteric femur fracture s/p repair. 2 Left fibula fracture 3. Hypertension - Sharla-operative care, incentive spirometry. dced chen, pads at discharge. - Continue her oral antihypertensives - Adequate pain control. - Follow orthopedics recommendations - Cardiology appreciated - DVT prophylaxis/eliquis as per orthopedics. Patient medically stable for dc to STR. Awaiting bed availability. FOLLOW UP PCP in 5-7 days Orthopedics in 2 weeks of dc
[2017-05-02 14:35] VITALS: BP 100/63
[2017-05-02 22:04] VITALS: BP 104/60
[2017-05-03 06:21] VITALS: BP 124/68
[2017-05-03 06:27] VITALS: BP 104/56
--- NOTE | 2017-05-03 09:38 | PN- Housestaff ---
Harish LANCASTER,Alison 05/03/17 0938: Subjective Follow-up For: falls fibula and femur fractures Subjective: Patient feeling better today. Eager to leave as she thought she was to leave yesterday. Review of Systems Constitutional: Reports: no symptoms. Cardiovascular: Reports: no symptoms. Respiratory: Reports: no symptoms. Gastrointestinal: Reports: no symptoms. Musculoskeletal: Reports: back pain, joint pain, muscle pain. Objective Last 24 Hrs of Vital Signs/I&O Vital Signs Date Time Temp Pulse Resp B/P B/P Pulse O2 O2 Flow FiO2 Mean Ox Delivery Rate 05/03 1039 98.1 83 18 104/56 05/03 0834 83 104/56 05/03 0627 98.1 83 18 104/56 91 Room Air 05/02 2204 99.1 78 18 104/60 90 Room Air 05/02 1435 97.7 84 20 100/63 94 Intake & Output 05/03 1600 05/03 0800 05/03 0000 Intake Total 200 100 Output Total 250 Balance -50 100 Intake, Oral 200 100 Number 0 1 Bowel Movements Output, Urine 250 Physical Exam General Appearance: Alert, Oriented X3, Cooperative, No Acute Distress Cardiovascular: Regular Rate, Normal S1, Normal S2, No Murmurs Lungs: Clear to Auscultation, Normal Air Movement Extremities: No Clubbing, No Cyanosis, No Edema, Normal Pulses Current Medications: Current Medications Sig/Sita Start time Last Medication Dose Route Stop Time Status Admin Acetaminophen 650 MG Q6P PRN 04/29 1745 AC 05/01 PO 0958 Apixaban 2.5 MG BID 05/01 1000 AC 05/03 PO 0834 Atenolol 25 MG DAILY 04/30 1000 AC 05/03 PO 0834 Bisacodyl 10 MG ONCE PRN 05/02 1100 DC 05/02 [place] 1658 Bisacodyl 5 MG DAILY 04/30 1047 AC 05/02 PO 0926 Diltiazem HCl 240 MG DAILY 04/30 1000 AC 05/03 PO 0834 Docusate Sodium 100 MG DAILY 05/02 1031 AC 05/02 PO 1108 Hydrocodone Bitart/ 1 TAB Q6P PRN 04/29 1745 AC 05/03 Acetaminophen PO 0520 Methocarbamol 500 MG TIDPRN PRN 04/29 2145 AC 04/30 PO 0506 Omeprazole 20 MG DAILY AC 05/01 0700 AC 05/03 PO 0633 Oxybutynin Chloride 2.5 MG TID 05/02 1000 AC 05/03 PO 0834 Polyethylene Glycol 17 GM DAILY 04/30 1531 AC 05/02 PO 0926 Senna/Docusate Sodium 1 TAB AT BEDTIME 04/29 2200 AC 05/01 PO 2211 Tramadol HCl 50 MG Q6P PRN 04/30 1445 AC 05/03 PO 0835 Assessment/Plan Assessment: 81-year-old female with a past medical history of hypertension and incidental brain tumor, right hip fracture 2 years ago, and left ankle fracture 4 years ago presenting for left hip pain status post fall and found to have a left fibular fracture as well as an acute comminuted intertrochanteric fracture of the proximal left femur on xray hip and leg Plan: #Acute left fibular fracture -Postop day #3 status post left hip open reduction internal fixation and splinting of the left ankle due to distal fibular fracture -Patient received perioperative cefazolin -LEFT HIP SOFT, SOME ECCHYMOSIS AROUND INCISIONS, NO ERYTHEMA OR DRAINAGE, XIOMARA IN PLACE, DRESSING CHANGED. DISTAL SONSORY AND MOTOR FUNT INTACT. -Cardiac consult was called prior to surgery and they have given clearance for this lower risk procedure. -Echo for further periop workup was done before cardio consult was in. It showed EF of >65% with stage I diastolic dysfunction. -prn pain meds pathway - patient prefers Vicodin but does not some pain still. She is on morphine as well 2mgq4 PRN. We did also add tramadol 50mg q6 as she is still in 7/10 pain. SHE WILL BE DISCHARGED ON VICODIN AND TRAMADOL 50Q6. -we started Eliquis 2.5mg bid which will be continued for 4 weeks PER SURGICAL PA. -Patient's DEXA is -3.6 but she is not on alendronate. It is recommended she start it so instructions will be sent to pcp for evaluation. -Patient is toe touch weightbearing and PT is suggesting STR, case managment to help with placement. PATIENT WAS SUPPOSED TO GO YESTERDAY BUT DID NOT BED WAS NOT AVAILABLE. SHE WILL HOPEFULLY LEAVE TODAY. -She was on IS to prevent post surgical atelectasis. #Hypertension BP Max 180/100 on admission Current BP: 118/82 #Urine leakage -Patient has been told she needs medications for urinary leakage but could not afford them. -We will give her oxybutinin 2.5 tid here and continue her on them in STR. She will be advised to discuss with PCP. #Full code #DVT prophylaxis Problem List: 1. Fibula fracture 2. Closed fracture of left distal fibula 3. Closed left hip fracture Pain Ratin Pain Location: left hip Pain Goal: Pain 4 or less Pain Plan: na Tomorrow's Labs & Rationales: Esther Hicks MD 05/03/17 1351: Attending MD Review Statement Attending Statement Attending MD Statement: examined this patient, discuss w/resident/PA/3D SPECIALIST, agreed w/resident/PA/3D SPECIALIST, reviewed EMR data (avail), discussed with nursing, discussed with case mgmt, reviewed images, amended to note Attending Assessment/Plan: Patient seen and examined, feels overall better. Denies any pain. patient had a BM yesterday. She has a bed available at [facility] today. She will be discharged to [facility].
[2017-05-03 10:39] VITALS: BP 104/56
[2017-05-03 15:43] VITALS: BP 100/60
[2017-05-03 22:45] VITALS: BP 110/60
[2017-05-04 06:20] VITALS: BP 118/56
--- NOTE | 2017-05-04 10:33 | PN- Housestaff ---
Demarco LANCASTER,Nicole 05/04/17 1033: Subjective Follow-up For: fibula and femur fractures s/p fall Complaints: no complaints Subjective: Sitting up in bed, no complaint. Review of Systems Constitutional: Reports: no symptoms. Objective Last 24 Hrs of Vital Signs/I&O Vital Signs Date Time Temp Pulse Resp B/P B/P Pulse O2 O2 Flow FiO2 Mean Ox Delivery Rate 05/04 0948 67 118/56 05/04 0620 98.1 67 18 118/56 91 Room Air 05/03 2245 98.3 73 19 110/60 93 Room Air 05/03 1543 97.9 65 22 100/60 91 Intake & Output 05/04 1600 05/04 0800 05/04 0000 Intake Total 240 480 Output Total 500 Balance -260 480 Intake, Oral 240 480 Number 0 1 Bowel Movements Output, Urine 500 Physical Exam General Appearance: Alert, Oriented X3, Cooperative, No Acute Distress Cardiovascular: Regular Rate, Normal S1, Normal S2 Lungs: Clear to Auscultation, Normal Air Movement Abdomen: Normal Bowel Sounds, Soft, No Tenderness Extremities: Left leg bandged and swollen, Rt leg normal, left hip bandage stained with some serosanguinous fluid Current Medications: Current Medications Sig/Sita Start time Last Medication Dose Route Stop Time Status Admin Acetaminophen 650 MG Q6P PRN 04/29 1745 AC 05/01 PO 0958 Apixaban 2.5 MG BID 05/01 1000 AC 05/04 PO 0948 Atenolol 25 MG DAILY 04/30 1000 AC 05/04 PO 0948 Bisacodyl 5 MG DAILY 04/30 1047 AC 05/02 PO 0926 Diltiazem HCl 240 MG DAILY 04/30 1000 AC 05/04 PO 0948 Docusate Sodium 100 MG DAILY 05/02 1031 AC 05/02 PO 1108 Hydrocodone Bitart/ 1 TAB Q6P PRN 04/29 1745 AC 05/04 Acetaminophen PO 0623 Methocarbamol 500 MG TIDPRN PRN 04/29 2145 AC 04/30 PO 0506 Omeprazole 20 MG DAILY AC 05/01 0700 AC 05/04 PO 0554 Oxybutynin Chloride 2.5 MG TID 05/02 1000 AC 05/04 PO 0948 Polyethylene Glycol 17 GM DAILY 04/30 1531 AC 05/02 PO 0926 Senna/Docusate Sodium 1 TAB AT BEDTIME 04/29 2200 AC 05/01 PO 2211 Tramadol HCl 50 MG Q6P PRN 04/30 1445 AC 05/04 PO 1040 Last 24 Hrs of Lab/Brijesh Results Last 24 Hrs of Labs/Mics: No labs today Lines/Diet/Fluids Lines: peripheral lines Assessment/Plan Assessment: 81-year-old female with a past medical history of hypertension and incidental brain tumor, right hip fracture 2 years ago, and left ankle fracture 4 years ago presenting for left hip pain status post fall and found to have a left fibular fracture as well as an acute comminuted intertrochanteric fracture of the proximal left femur on xray hip and leg. Plan: #Acute left fibular fracture -Postop day #4 status post left hip open reduction internal fixation and splinting of the left ankle due to distal fibular fracture -Patient received perioperative cefazolin -LEFT HIP SOFT, SOME ECCHYMOSIS AROUND INCISIONS, NO ERYTHEMA OR DRAINAGE, XIOMARA IN PLACE, DRESSING CHANGED. DISTAL SONSORY AND MOTOR FUNT INTACT. -Continue current pain mgt -Continue Eliquis 2.5mg bid which will be continued for 4 weeks PER SURGICAL PA. -Patient still waiting on STR placement which is on hold due to residents coming down with the flu at the facility according to the pt #Hypertension #Urine leakage -Continue oxybutinin 2.5 tid here and continue her on them in STR. She will be advised to discuss with PCP. #Leukocytosis on past labs Labs not checked today; will order labs for AM #Full code #DVT prophylaxis Problem List: 1. Fibula fracture Pain Ratin Pain Location: left hip Pain Goal: Remain pain free Pain Plan: continue current plan Tomorrow's Labs & Rationales: CBC, BEP Timoteo LANCASTER,Esther 05/04/17 1234: Attending MD Review Statement Attending Statement Attending MD Statement: examined this patient, discuss w/resident/PA/INSURANCE SALES SPECIALIST, agreed w/resident/PA/INSURANCE SALES SPECIALIST, reviewed EMR data (avail), discussed with nursing, discussed with case mgmt, amended to note Attending Assessment/Plan: Patient seen and examined, overall doing well. Diarrhea has improved. Patient was going to be discharged yesterday but unfortunately the long-term where she was going to go has an outbreak of influenza. Therefore the patient could not go. Otherwise she is doing well. Her vital signs are stable. She is medically stable for discharge whenever there is a bed available. Continue all current management. Patient on Eliquis.
[2017-05-04 14:51] VITALS: BP 120/70
[2017-05-04 23:21] VITALS: BP 112/70
[2017-05-05 06:20] VITALS: BP 132/78
--- NOTE | 2017-05-05 08:26 | PN- Housestaff ---
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 Eager to leave. No complaints. Review of Systems Constitutional: Reports: no symptoms. Objective Last 24 Hrs of Vital Signs/I&O Vital Signs Date Time Temp Pulse Resp B/P B/P Pulse O2 O2 Flow FiO2 Mean Ox Delivery Rate 05/05 0954 75 132/78 05/05 0620 98.3 75 20 132/78 93 Room Air 05/04 2321 98.8 81 21 112/70 91 Room Air Intake & Output 05/05 1600 05/05 0800 05/05 0000 Intake Total 100 100 Output Total 250 400 Balance -150 -300 Intake, Oral 100 100 Number 0 Bowel Movements Output, Urine 250 400 Patient 150 lb Weight Physical Exam General Appearance: Alert, Oriented X3, Cooperative, No Acute Distress Current Medications: Current Medications Sig/Sita Start time Last Medication Dose Route Stop Time Status Admin Acetaminophen 650 MG Q6P PRN 04/29 1745 DCD 05/01 PO 0958 Apixaban 2.5 MG BID 05/01 1000 DCD 05/05 PO 0954 Atenolol 25 MG DAILY 04/30 1000 DCD 05/05 PO 0954 Bisacodyl 5 MG DAILY 04/30 1047 DCD 05/02 PO 0926 Diltiazem HCl 240 MG DAILY 04/30 1000 DCD 05/05 PO 0954 Docusate Sodium 100 MG DAILY 05/02 1031 DCD 05/05 PO 0954 Hydrocodone Bitart/ 1 TAB Q6P PRN 04/29 1745 DCD 05/05 Acetaminophen PO 0156 Methocarbamol 500 MG TIDPRN PRN 04/29 2145 DCD 04/30 PO 0506 Omeprazole 20 MG DAILY AC 05/01 0700 DCD 05/05 PO 0553 Oxybutynin Chloride 2.5 MG TID 05/02 1000 DCD 05/05 PO 0954 Polyethylene Glycol 17 GM DAILY 04/30 1531 DCD 05/02 PO 0926 Senna/Docusate Sodium 1 TAB AT BEDTIME 04/29 2200 DCD 05/01 PO 2211 Tramadol HCl 50 MG Q6P PRN 04/30 1445 DCD 05/05 PO 0955 Last 24 Hrs of Lab/Brijesh Results Last 24 Hrs of Labs/Mics: Laboratory Tests 05/05/17 0600: Sodium Cancelled, Potassium Cancelled, Chloride Cancelled, Carbon Dioxide Cancelled, Anion Gap Cancelled, BUN Cancelled, Creatinine Cancelled, BUN/ Creatinine Ratio Cancelled, CBC w Diff Cancelled, WBC Cancelled, RBC Cancelled, Hgb Cancelled, Hct Cancelled, MCV Cancelled, MCH Cancelled, MCHC Cancelled, RDW Cancelled, Plt Count Cancelled, MPV Cancelled Assessment/Plan Assessment: 81-year-old female with a past medical history of hypertension and incidental brain tumor, right hip fracture 2 years ago, and left ankle fracture 4 years ago presenting for left hip pain status post fall and found to have a left fibular fracture as well as an acute comminuted intertrochanteric fracture of the proximal left femur on xray hip and leg. Plan: #Acute left fibular fracture -Postop day #6 status post left hip open reduction internal fixation and splinting of the left ankle due to distal fibular fracture -Patient received perioperative cefazolin -Some pain remaining in left hip on palpation post surgical. -Continue current pain mgt while in hospital with orders sent to STR. -Continue Eliquis 2.5mg bid which will be continued for 4 weeks PER SURGICAL PA. -Patient still waiting on STR placement which was on hold due to residents coming down with the flu at the facility according to case management. #Hypertension #Urine leakage -Oxybutinin 2.5 tid here and continue her in STR. She will be advised to discuss with PCP. #Full code #DVT prophylaxis Problem List: 1. Closed fracture of left distal fibula 2. Closed left hip fracture Pain Ratin Pain Location: left hip Pain Goal: Pain 4 or less Pain Plan: continue vicodin and tramadol Tomorrow's Labs & Rationales: paul WisdomJoy 05/05/17 1219: Attending MD Review Statement Attending Statement Attending MD Statement: examined this patient, discuss w/resident/PA/DEPOSITION REPORTER, agreed w/resident/PA/DEPOSITION REPORTER, discussed with family, reviewed EMR data (avail), discussed with nursing, discussed with case mgmt, reviewed images, amended to note Attending Assessment/Plan: She is medically stable for discharge whenever there is a bed available. Continue all current management. Patient on Eliquis for dvt prophyaxis
[2017-05-05 09:54] VITALS: BP 132/78
== END 2017-05-05 12:30 | DRG 482 ==
LOC: DELPENDDIS → ERH 16:07 → 2NA 19:36 → ERHI 19:36 → ENRESERV 21:31 → ENTRNSPT 22:39 → EDTRNSPT 22:46 → EDTRNSPTSTS 22:46 → 2NA 22:57 → CMPTRNSPT 04-29 07:22 → 2NA 04-29 07:32 → ENTRNSPT 04-29 17:38 → EDTRNSPTSTS 04-29 17:44 → EDTRNSPT 04-29 17:44 → CMPTRNSPT 04-29 18:01 → ENPENDDIS 05-02 12:35 → EDPENDDISTM 05-03 11:12 → EDPENDDISDT 05-03 11:12 → ENPENDDIS 05-05 10:13 → 2NA 05-05 12:30
PROVIDERS: Physician Assistant; Physician Assistant Surgical; Student in an Organized Health Care Education/Training Program
PROC: 2W3RX1Z Immobilization of Left Lower Leg using Splint (ICD-10-PCS; principal; 2017-04-29)
PROC: 0QS704Z Reposition Left Upper Femur with Internal Fixation Device, Open Approach (ICD-10-PCS; principal; 2017-04-29)
DX: S72.142A Displaced intertrochanteric fracture of left femur, initial encounter for closed fracture (principal); I10 Essential (primary) hypertension; R32 Unspecified urinary incontinence; W07.XXXA Fall from chair, initial encounter; S82.422A Displaced transverse fracture of shaft of left fibula, initial encounter for closed fracture; Y92.009 Unspecified place in unspecified non-institutional (private) residence as the place of occurrence of the external cause; Z86.73 Personal history of transient ischemic attack (TIA), and cerebral infarction without residual deficits
CPT/HCPCS: 2NAP; 36415; 71045; 72170; 73501; 73502-LT; 73600-LT; 73610-LT; 81003; 82436; 87086; 93005; 93010; 93306; 96372; 96374; 97110-GO; 97112-GO; 97116-GO; 97161-GP; 97530-GO; 99291; J0131; J0690; J1630; J1644; J2405; J3101; J7042